=== PATIENT | male | born 1955 | race Caucasian/White ===

== ENCOUNTER 2021-11-14 14:55 | Outpatient (REF) | payer MEDICARE, SELFPAY ==
--- NOTE | ~2021-11-14 | US_ITS ---
EXAMINATION: US VENOUS ULTRASOUND WITH DOPPLER LOWER EXTREMITY, RIGHT CLINICAL INFORMATION: This is a 66-year-old male with right leg pain. Possible deep vein thrombosis. COMPARISON: None TECHNIQUE: Ultrasound of the deep veins is performed from the hip to the calf with compression sonography and color and pulse Doppler assessment. Spectral analysis with color-flow imaging is performed. FINDINGS: There is normal venous compression and respiratory variation and augmented flow. The visualized common femoral vein, superficial femoral vein, profunda femoral vein, popliteal vein, and the trifurcation region shows no evidence of deep venous thrombosis. There is a 3.2 x 1.0 x 2.1 cm cyst in the popliteal fossa. This could represent a Mendze's cyst. If the patient's symptoms persist, followup ultrasound in 5 days 7 days might be of value to exclude proximal propagation from a non-visualized calf vein. US/US venous duplex LE RT IMPRESSION: 1. No DVT demonstrated in the right lower extremity. 2. There is a possible Mendez's cyst measuring 3.2 cm in the right popliteal fossa.
== END 2021-11-14 14:56 | disposition home or self-care (01) ==
LOC: HO.US 14:55
PROVIDERS: Absent Provider Student in an Organized Health Care Education/Training Program; PCP Student in an Organized Health Care Education/Training Program; Visit Provider Emergency Medicine
DX: R60.0 Localized edema (principal); M79.89 Other specified soft tissue disorders
CPT/HCPCS: 93971

== ENCOUNTER 2024-06-26 12:39 | Outpatient (REF) | payer MEDICARE, SELFPAY ==
[2024-06-26 14:33] LABS: Estimated Average Glucose 220 mg/dL; Hemoglobin A1C 278.5577 umol/L; Hemoglobin A1c % 9.3 % (<6.0); Total Hemoglobin (HGBA1C) 3580.7415 umol/L
[2024-06-26 14:55] LABS: Erythrocyte Sedimentation Rate 11 MM/HR (0-15)
[2024-06-26 17:05] LABS: Folate > 20.0 ng/mL (> or = 4.0); Vitamin B12 353 pg/mL (200-900)
[2024-06-27 12:38] LABS: Lyme Abs Screen <0.90 index
[2024-06-29 19:03] LABS: IgA 164 mg/dL (70-320); IgG 676 mg/dL (600-1540); IgM 67 mg/dL (50-300)
== END 2024-06-26 12:40 | disposition home or self-care (01) ==
LOC: HO.LAB 12:39
PROVIDERS: Absent Provider Student in an Organized Health Care Education/Training Program; PCP Student in an Organized Health Care Education/Training Program; Visit Provider Psychiatry & Neurology Neurology
DX: G62.9 Polyneuropathy, unspecified (principal); Z13.1 Encounter for screening for diabetes mellitus
CPT/HCPCS: 36415; 82607; 82746; 82784; 83036; 85652; 86334; 86617; 86618

== ENCOUNTER 2025-08-01 09:52 | Outpatient (REF) | payer MEDICARE, SELFPAY ==
--- OUTSIDE RECORDS SUMMARY | 2025-08-01 09:15 | XMS_ITS | Encounter Summary ---
Author Organization [employer] Address [address] [place] [address] 7 [place] [address] Care Team Providers Care Hr Payroll Coordinator Name Role Phone Rina Suarez PharmD Unavailable [phone] Alyx Valadez MD Primary Care Provider [phone] Reason for Referral * Consultation (Routine) - Pending Review Specialty Diagnoses / Procedures Referred By Francisco Javier gee Referred To Contact Gastroenterology Diagnoses Colon cancer screening Alyx Valadez MD [address] [place] [address] Phone: tel: fax: Referral ID Status Reason Start Date Expiration Date Visits Requested Visits Authorized [id number] Pending Review Specialty Services Required 08/01/2026 1 1 Reason for Visit * Reason Comments Establish Care Encounter Details Date Type Department Care Team ([facility] st Contact Info) Description 08/01/2025 9:15 AM EST Office Visit [facility] [address] [place] [address] Alyx Valadez MD [address] [place] [address] Type 2 diabetes mellitus without complication, without long-term current use of insulin (HCC) (Primary Dx); Mixed simple and mucopurulent chronic bronchitis (CMS/HCC) (HCC); COPD with asthma (CMS/HCC) (HCC); Other hyperlipidemia; Pulmonary embolism, other, unspecified chronicity, unspecified whether acute cor pulmonale present (CMS/HCC) (HCC); Benign prostatic hyperplasia with lower urinary tract symptoms, symptom details unspecified; Colon cancer screening; Abnormal gait due to peripheral sensory disorder; Impaired mobility and ADLs; Hypothyroidism, unspecified type Social History Tobacco Use Types Packs/Day Years Used Date Smoking Tobacco: Former Cigarettes Smokeless Tobacco: Never Depression Answer Date Recorded Patient Health Questionnaire-9 Score 0 08/01/2025 Patient Health Questionnaire-9 Score 0 08/01/2025 Last PHQ-9: Questionnaire Data Not on file 1 10/01/2024 Housing Stability Answer Date Recorded What is your housing situation today? I have jaspreet aviles 10/11/[address] you li ve. Do you have problems with any of the following? None of the above 10/11/2024 Food Insecurity Answer Date Recorded Within the past 12 months, y ou worried that your food would run out before you got money to buy more: Never True 10/11/2024 Within the past 12 months,th e food you bought just didn't last and you didn't have enough money to get more: Never True 01/2025 Transportation Answer Date Recorded In the past 12 months, has l ack of transportation kept you from medical appts, meetings, work or from getting things needed for daily living? No 10/11/2024 Utilities Answer Date Recorded In the past 12 months, has t he electric, gas, oil or water company threatened to shut off services in your home? Yes 07/23/2025 Depression Answer Date Recorded Patient Health Questionnaire-2 Score 0 08/01/2025 Internet Access Answer Date Recorded Internet Access Q1 Yes 07/23/2025 Internet Access Q2 I do not want or need it 07/07 Sex and Gender Information Value Date Recorded Sex Assigned at Male 07/06/2022 10:20 AM EDT Legal Sex Male 10:20 AM EDT Gender Identity Male 07/06/2022 10:20 AM EDT Sexual Orientation Straight 07/06/2022 10 :20 AM EDT documented as of this encounter Last Filed Vital Signs Vital Sign Reading Time Taken Comments Blood Pressure 118/66 08/01/2025 9:01 AM EST Pulse 78 08/01/2025 9:01 AM EST Temperature 36.3 C (97.4 F) 08/01/2025 9:01 AM EST Respiratory Rate 18 08/01/2025 9:01 AM EST Oxygen Saturation 97% 08/01/2025 9:01 AM EST Inhaled Oxygen Concentration - - Weight 93.5 kg (206 lb 3.2 oz) 08/01/2025 9:01 A M EST Height 162.6 cm (5' 4 ) 08/01/2025 9:01 AM EST Body Mass Index 35.39 08/01/2025 9:01 AM EST documented in this encounter Functional Status * Over the past 2 weeks, how often have you been bothered by any of the following problems? Question Answer Date of Assessment Author Patient Health Questionnaire-2 Score 0 07/08 9:02 AM EST Devon Fernandez MA * Little interest or pleasure in doing things Answer Date of Assessment Author Not at all 08/01/2025 9:02 AM Devon Mcknight MA * Feeling down, depressed, or hopeless Answer Date of Assessment Author Not at all 08/01/2025 9:02 AM Devon Mcknight MA * Trouble falling or staying asleep, or sleeping too much Answer Date of Assessment Author Not at all 08/01/2025 9:02 AM Devon Mcknight MA * Feeling tired or having little energy Answer Date of Assessment Author Not at all 08/01/2025 9:02 AM Devon Mcknight MA * Poor appetite or overeating Answer Date of Assessment Author Not at all 08/01/2025 9:02 AM Devon Mcknight MA * Feeling bad about yourself - or that you are a failure or have let yourself or your family down Answer Date of Assessment Author Not at all 08/01/2025 9:02 AM Devon Mcknight MA * Trouble concentrating on things, such as reading the newspaper or watching television Answer Date of Assessment Author Not at all 08/01/2025 9:02 AM Devon Mcknight MA * Moving or speaking so slowly that other people could have noticed? Or the opposite - being so fidgety or restless that you have been moving around a lot more than usual. Answer Date of Assessment Author Not at all 08/01/2025 9:02 AM Devon Mcknight MA * Thoughts that you would be better off or hurting yourself in some way Answer Date of Assessment Author Not at all 08/01/2025 9:02 AM Devon Mcknight MA * Patient Health Questionnaire-9 Score Answer Date of Assessment Author 0 08/01/2025 9:02 AM Devon Mcknight MA documented as of this encounter Progress Notes * Alyx Valadez MD - 08/01/2025 9:15 AM EST Subjective Patient ID: Naeem Lai is a 70 y.o. male who presents for Establish Care. Naeem Lai is a patient with a history of diabetes, bipolar disorder, hypertension, hypothyroidism, leg swelling, and lung nodule who presents for routine follow-up. He reports having eaten a banana and avocado for breakfast this morning. The patient has been using a walker for approximately 5 years after experiencing an episode where his legs gave out while walking from his apartment to [facility] and back. He initially used a cane but his condition worsened, requiring progression to a walker. He reports having diabetic neuropathy with drop foot on both sides. He does not walk at all currently and relies on the walker for mobility, with van transportation services providing assistance. He uses a wheelchair that requires someone to push him, with the grievance and appeals coordinator providing this assistance during transportation. The patient reports hand tremors and will be evaluated for possible Parkinson's disease. He has a history of heart attacks a couple of years ago and pulmonary embolism three to four years ago, for which he takes a blood thinner, though he has not been given specific guidance on duration of therapy.He has COPD and takes fenofibrate for cholesterol management. He uses gabapentin for neuropathy management. He reports urinary control issues that occurred while in the snf and hospital, but states he regained control after returning home. He has not yet seen a urologist but is scheduled to do so,despite being on finasteride and Flomax for prostate-related symptoms. The patient lives alone with personal care attendants from [facility] agency providing assistance for a couple of hours in the morning and 2 hours in the afternoon several days per week. He receives chcf services from [facility] for medication administration, blood sugar and blood pressure monitoring, and assistance with braces and shoes. He also receives physical therapy and occupational therapy services from [facility]. He currently has a bruise on his foot and was not wearing shoes during the visit for this reason. He reports being overdue for colonoscopy screening and cataract surgery, with plans to schedule thecataract procedure this year after being told a year ago he could have it done. He continues to seeDr. [facility] for psychiatry at [facility] and Dr. Hoang, a cancer specialist at [facility], for lung cancer management, noting he believes he caught the cancer early. The patient denies known allergies but reports seasonal allergies. He denies having Parkinson's disease at this time. Medical History - Pulmonary embolism 3-4 years ago - Myocardial infarction several years ago - Diabetic neuropathy with bilateral drop foot, ambulatory decline over 5 years - Diabetes mellitus - Bipolar disorder - Hypertension - Hypothyroidism - Chronic obstructive pulmonary disease (COPD) - Lower extremity edema - Lung nodule - Seasonal allergies - Urinary incontinence during previous snf and hospital stay Allergies - No known drug allergies - Seasonal allergies Social History - Living Situation: Lives alone - Support Services: Has personal care attendants from [facility] agency who assist for a couple of hours in the morning and 2 hours in the afternoon several days per week; receives chcf services from [facility] for medication administration, blood sugar monitoring, blood pressure checks, and assistance with braces and shoes; receives physical therapy and occupational therapy services from [facility] - Transportation: Uses medical van transportation services with class b driver assistance Review of Systems Genitourinary: Negative for current urinary incontinence. Neurological: Positive for hand tremors. Review of Systems Objective BP 118/66 Pulse 78 Temp 97.4 ??F (36.3 ??C) (Oral) Resp 18 Ht 5' 4 (1.626 m) Wt 206 lb 3.2 oz (93.5 kg) SpO2 97% BMI 35.39 kg/m?? Physical Exam Constitutional: General: He is not in acute distress. Appearance: He is obese. He is not ill-appearing. Comments: Malodorous HENT: Head: Normocephalic and atraumatic. Nose: No congestion. Pulmonary: Effort: Pulmonary effort is normal. No respiratory distress. Breath sounds: Normal breath sounds. Musculoskeletal: Cervical back: Normal range of motion. Comments: Currently sitting in a transportation wheelchair. Is able to get up to get weight check with difficulties. Neurological: General: No focal deficit present. Psychiatric: Mood and Affect: Mood normal. Assessment/Plan Problem List Items Addressed This Visit Hypothyroidism Relevant Orders TSH W/Reflex to FT4 Type 2 diabetes mellitus without complication, without long-term current use of insulin (HCC) - Primary Relevant Orders POCT Glucose (Completed) POCT Hgb A1c (Completed) Lipid Panel, Standard Comprehensive Metabolic Panel Hepatitis C Antibody with Reflex to HCV, RNA, Quantitative, Real-Time PCR Albumin, Random Urine W/Creatinine RESOLVED: Mixed simple and mucopurulent chronic bronchitis (CMS/HCC) (HCC) Other hyperlipidemia Pulmonary embolism (HCC) Benign prostatic hyperplasia with lower urinary tract symptoms Abnormal gait due to peripheral sensory disorder Impaired mobility and ADLs Other Visit Diagnoses COPD with asthma (CMS/HCC) (HCC) Colon cancer screening Relevant Orders Referral to Gastroenterology Naeem Lai is a patient with diabetes mellitus, bipolar disorder, hypertension, hypothyroidism, peripheral edema, lung nodule, COPD, history of myocardial infarction and pulmonary embolism, presenting for routine follow-up with concerns about wheelchair needs and overdue screening procedures. Diabetes mellitus Assessment: Patient has established diabetes with recent A1C of 6.3 indicating reasonable glycemic control, though current glucose of 186 mg/dL is elevated following breakfast consumption of banana and avocado. Patient has developed diabetic neuropathy with bilateral drop foot requiring use of walker for approximately 5 years after experiencing leg weakness that progressed from requiring cane to walker assistance. Plan: - Order laboratory studies - Labs to be completed today before patient transport pickup Mobility impairment Assessment: Patient is non-ambulatory, using walker for 5 years since experiencing sudden leg weakness [facility] apartment [facility] He has bilateral drop foot secondary to diabetic neuropathy. Currently uses wheelchair for transportation with van service assistance. Patient reports adeq uate function with current walker but uncertainty about wheelchair needs for insurance documentation. Plan: - Coordinate with [employer] bhavana Guzman to determine appropriate wheelchair type for insurance documentation Lung cancer Assessment: Patient has lung cancer managed by Dr. Hoang at [facility], believes it was caught early. Patient is overdue for follow-up appointment with oncology. Plan: - Patient to schedule overdue appointment with Dr. Hoang at [facility] Overdue screening procedures Assessment: Patient is overdue for colonoscopy for colon cancer screening and has not completed recent cholesterol testing. Patient also has cataracts that video tape duplicator indicated could be addressed this year. Plan: - Refer for colonoscopy at [facility] - Patient to schedule cataract surgery appointment in [place] Urological concerns Assessment: Patient is on finasteride and Flomax for prostate issues but has not yet seen urologist. History of urinary incontinence during snf and hospital stays that resolved upon returning home. First urology visit pending. Plan: - Clarify diagnosis and indication for urology referral Anticoagulation management Assessment: Patient is on blood thinner following myocardial infarctions and pulmonary embolism 3-4years ago. No clear guidance provided regarding duration of therapy or discontinuation timeline. Plan: - Clarify anticoagulation duration and monitoring plan Tremor Assessment: Patient reports hand tremor and will be evaluated for possible Parkinson's disease. Plan: - Patient to undergo evaluation for Parkinson's disease documented in this encounter Plan of Treatment Upcoming Encounters Date Type Department Care Team (Late st Contact Info) Description 10/01/2025 1:00 PM EST Telemedicine [facility] [address] [place] [address] Rina Suarez, PharmD [address], [place] [id number] Scheduled Orders Name Type Priority Associated Diagnoses Orde r Schedule TSH W/Reflex to FT4 Lab Routine Hypothyroidism, unspecified type Expected: 08/01/2025 (Approximate), Expires: 08/01/2026 Lipid Panel, Standard Lab Routine Type 2 diabetes mellitus without complication, without long-term current use of insulin (HCC) Expected: 08/01/2025 (Approximate), Expires: 08/01/2026 Comprehensive Metabolic Panel Lab Routine Type 2 diabetes mellitus without complication, without long-term current use of insulin (HCC) Expected: 08/01/2025 (Approximate), Expires: 08/01/2026 Hepatitis C Antibody with Reflex to HCV, RNA, Quantitative, Real-Time PCR Lab Routine Type 2 diabetes mellitus without complication, without long-term current use of insulin (HCC) Expected: 08/01/2025, Expires: 08/01/2026 Albumin, Random Urine W/Creatinine Lab Routine Type 2 diabetes mellitus without complication, without long-term current use of insulin (HCC) Expected: 08/01/2025 (Approximate), Expires: 08/01/2026 Scheduled Referrals Name Type Priority Associated Diagnoses Order Schedule Referral to Gastroenterology Outpatient Referral Routine Colon cancer screening Expected: 08/01/2025 (Approximate), Expires: 08/01/2026 documented as of this encounter Goals Goal Patient Goal Type Associated Problems Recent Progress Patient-Stated? Author Help patients manage their type 2 diabetes Care Plan Help patients manage their type 2 diabetes No Tiarra Keen Weekly blood pressure task Care Plan Weekly blood pressure task No Tiarra Keen Help patients manage their type 2 diabetes Care Plan Help patients manage their type 2 diabetes No Tiarra Keen Patient has chronic kidney disease Care Plan Patient has chronic kidney disease No Tiarra Keen Weekly blood pressure task Care Plan Weekly blood pressure task No Tiarra Keen Patient has chronic kidney disease Care Plan Patient has chronic kidney disease No Tiarra Keen Weekly blood pressure task Care Plan Weekly blood pressure task No Devon Fernandez MA Weekly blood pressure task Care Plan Weekly blood pressure task No Devon Fernandez MA Patient has chronic kidney disease Care Plan Patient has chronic kidney disease No Devon Fernandez MA Patient has chronic kidney disease Care Plan Patient has chronic kidney disease No Devon Fernandez MA Weekly blood pressure task Care Plan Weekly blood pressure task No Devon Fernandez MA Weekly blood pressure task Care Plan Weekly blood pressure task No Devon Fernandez MA Patient has chronic kidney disease Care Plan Patient has chronic kidney disease No Devon Fernandez MA Patient has chronic kidney disease Care Plan Patient has chronic kidney disease No Devon Fernandez MA documented as of this encounter Procedures Procedure Name Priority Date/Time Associated Diagnosis Comments POCT GLUCOSE Routine 08/01/2025 9:12 AM EST Type 2 diabetes mellitus without complication, without long-term current use of insulin (HCC) POCT GLYCATED HEMOGLOBIN, TOTAL Routine 08/01/2025 9:11 AM EST Type 2 diabetes mellitus without complication, without long-term current use of insulin (HCC) documented in this encounter Results * POCT Glucose (08/01/2025 9:12 AM EST) Pathologist [facility] Glucose Blood, POC 186 60 - 200 mg/dL QC Media Lot # [id number] Lot# Expiration Date [id number] Blood Capillary blood specimen / Unknown 08/01/2025 9:12 AM EST us Alyx Valadez MD POINT OF CARE TEST ENTER/EDIT ORDERABLES Final Result * (ABNORMAL) POCT Hgb A1c (08/01/2025 9:11 AM EST) Hemoglobin A1C 6.3(A) 4.0 - 5.7 % QC Media Lot # [id number] Lot# Expiration Date Blood 08/01/2025 9:11 AM EST us Alyx Valadez MD POINT OF CARE TEST ENTER/EDIT ORDERABLES Final Result documented in this encounter Visit Diagnoses Diagnosis Type 2 diabetes mellitus without complication, without long-term current use of insulin (HCC)- Primary Mixed simple and mucopurulent chronic bronchitis (CMS/HCC) (HCC) Other chronic bronchitis COPD with asthma (CMS/HCC) (HCC) Other hyperlipidemia Pulmonary embolism, other, unspecified chronicity, unspecified whether acute cor pulmonale present (CMS/HCC) (HCC) Benign prostatic hyperplasia with lower urinary tract symptoms, symptom details unspecified Colon cancer screening Special screening for malignant neoplasms, colon Abnormal gait due to peripheral sensory disorder Impaired mobility and ADLs Hypothyroidism, unspecified type documented in this encounter Additional Health Concerns Active Problems Noted Date Diagnosed Date Help patients manage their type 2 diabetes 07/23 Weekly blood pressure task 07/23/2025 Help patients manage their type 2 diabetes 07/23 Patient has chronic kidney disease 07/23/2025 Weekly blood pressure task 07/23/2025 Patient has chronic kidney disease 07/23/2025 Weekly blood pressure task 07/31/2025 Weekly blood pressure task 07/31/2025 Patient has chronic kidney disease 07/31/2025 Patient has chronic kidney disease 07/31/2025 Weekly blood pressure task 08/01/2025 Weekly blood pressure task 08/01/2025 Patient has chronic kidney disease 08/01/2025 Patient has chronic kidney disease 08/01/2025 Assessment Noted Time PHQ-9 Depression Total Score: 0 08/01/20 9:02 AM EST documented as of this encounter Care Teams Hr Payroll Coordinator Relationship Specialty Start Date End Date Alyx Valadez MD [address] [place] [id number] PCP - General Family Medicine 07/20/25 Rina Suarez, ShirinD [address] [place] [address] Pharmacist Internal Medicine 10/27/24 [facility] 06/18/24 Pawan Valles MD [address] [place] [id number] Psychiatrist 08/01/25 [facility] 08/01/25 Megan Lr 08/01/25 documented as of this encounter
--- OUTSIDE RECORDS SUMMARY | 2025-08-01 11:24 | XMS_ITS | Encounter Summary ---
Author Organization [email or web address] Address [address] [place] [address] Care Team Providers Care Time Study Statistician Name Role Phone Sarah Holt MD Primary Care Provider [phone] Rina Suarez PharmD Unavailable [phone] James Dutton CNP Primary Care Provider [phone] Alyx Valadez MD Primary Care Provider [phone] Reason for Visit * Reason Onset Date Comments Nurse Triage 07/02/2023 Encounter Details Date Type Department Care Team (Late st Contact Info) Description 07/02/2023 Telephone [facility] [address] [place] [address] Sarah Holt MD [address] [place], [place] [id number] Nurse Triage Social History Tobacco Use Types Packs/Day Years Used Date Smoking Tobacco: Never Smokeless Tobacco: Never Housing Stability Answer Date Recorded What is your housing situation today? I have jaspreet aviles 07/02/[address] you li ve. Do you have problems with any of the following? None of the above 07/02/2023 Food Insecurity Answer Date Recorded Within the past 12 months, y ou worried that your food would run out before you got money to buy more: Never True 07/02/2023 Within the past 12 months,th e food you bought just didn't last and you didn't have enough money to get more: Never True Transportation Answer Date Recorded In the past 12 months, has l ack of transportation kept you from medical appts, meetings, work or from getting things needed for daily living? No 07/02/2023 Utilities Answer Date Recorded In the past 12 months, has t he electric, gas, oil or water company threatened to shut off services in your home? No 07/02/2023 Depression Answer Date Recorded Patient Health Questionnaire-2 Score 0 07/02/2023 Sex and Gender Information Value Date Recorded Sex Assigned at Male 07/06/2022 10:20 AM EDT Legal Sex Male 10:20 AM EDT Gender Identity Male 07/06/2022 10:20 AM EDT Sexual Orientation Straight 07/06/2022 10 :20 AM EDT documented as of this encounter Functional Status * Over the past 2 weeks, how often have you been bothered by any of the following problems? Question Answer Date of Assessment Author Little interest or pleasure in doing things Not at all 07/02/2023 10:28 AM EDT Jacqueline Trevino MA Feeling down, depressed, or hopeless Not at all 07/02/2023 10:28 AM EDT Jacqueline Trevino MA Patient Health Questionnaire -2 Score 0 07/02/2023 10:28 AM EDT Jacqueline Trevino MA documented as of this encounter Miscellaneous Notes * Telephone Encounter - Cassandra Vargas RN - 07/02/2023 2:18 PM EDT Called [facility], spoke to Kitty who states pt BP has not been in good control. Advised that had a long discussion with sister and pt regarding this and his most recent health history. Pt had TC appt todaywith a provider for interim medication management until his in person HDF appt on 07/06. Advised tocall back if further concerns and will task to team nurses to follow up with [facility] as needed. * Telephone Encounter - Tammy Hernandez - 07/02/2023 1:54 PM EDT Tc from Kitty with [facility] services requesting a call back in regards pt High Blood Pressure. Symptom: High Blood Pressure - Caller Reports Outcome: Schedule an urgent appointment (within 1 hour) or talk to a nurse or provider soon Reason: Getting worse The caller accepted this outcome Please contact kitty [phone] documented in this encounter Plan of Treatment Upcoming Encounters Date Type Department Care Team (Late st Contact Info) Description 10/01/2025 1:00 PM EST Telemedicine [facility] & PEDS [address] [place] [address] Rina Suarez, PharmD [address] [place] [address] documented as of this encounter Visit Diagnoses Not on filedocumented in this encounter Care Teams Time Study Statistician Relationship Specialty Start Date End Date Sarah Holt MD [address] [place] [address] PCP - General Family Medicine 09/12/13 07/03/25 James Dutton CNP [address] [place] [address] PCP - General Family Medicine 07/04/25 07/19/25 Alyx Valadez MD [address] [place] [address] PCP - General Family Medicine 07/20/25 Rina Suarez, PharmD [address] [place] [address] Pharmacist Internal Medicine 10/27/24 [facility] 06/18/24 Pawan Valles MD [address] [place] [address] Psychiatrist 08/01/25 [facility] 08/01/25 Megan Lr 08/01/25 documented as of this encounter
--- OUTSIDE RECORDS SUMMARY | 2025-08-01 11:24 | XMS_ITS | Data Portability ---
Author Organization [employer] [facility] [place] [facility] Address [address] [place] [address] Care Team Providers Care Tanbark Laborer Name Role Phone HIM CCA OTHER Assessment Encounter Date Assessment Date Assessment LastModified by Organization Details LastModified Time 07/05/2023 07/05/2023 68 yo M with hypertension calls for BP check after recently elevated BP while in the ED. No CP, SOB, visual changes, headache. Found to have SBP 170s. Otherwise, VS wnl and exam unremarkable. Pt instructed to f/up PCP. jesus Not available 07/16/2023 20:00:35 11/13/2024 11/13/2024 I have reviewed and agree with the assessment and plan as documented by the pharmacy manager. I provided real-time medical direction for this encounter and was immediately available to provide additional phone-based assistance as needed. History as noted in EMR and by pharmacy manager. I would add / emphasize: Pt seen for unintentional weight gain, elevated BP since coming off HCTZ for hypotension and intermittent e/o non exertional chest pressure. ECG w/ RBBB no acute changes and AVSS / well appearing no CP at present. Reviewed my recommendation for ED eval for R/O PR / ACS and patient would prefer close follow up with geophysical laboratory chief. TO call today for an appointment. reviewed that if CP recurrs and is assoc w/ new sxs or does not resolve spontaneously to present to ED via 911 and pt is in agreement. Seems atypical for cardiac CP but warrants close eval given hx of CAD. Pt aware we cannot JAVI at home. pallfather Not available 11/14/2024 14:20:17 Plan of Treatment Reminders Order Date Submit Date Provider Last Modified By Organization Details Last Modified Time Details Appointments None recorded. Lab None recorded. Referral None recorded. Procedures None recorded. Surgeries None recorded. Imaging electrocard iogram [address] [facility], [address] [place] [address], [phone] 05:01:41 Medication Orders None recorded. Patient TargetsNo targets recorded. Patient InstructionsNo instructions recorded. Reason for Referral None Reported. Results Created Date Observation Date Name Description Value Unit Range Abnormal Flag Note LastModifiedBy Organization Detail LastModifiedTime 11/15/1911/14/2024 abdelrahman salvadorgr am No observ ation record ed. [email or web address] [address], [address] 11/14/2024 14:29:56 Result Notes None recorded. Medical Equipment None Reported. Allergies No known drug allergies Medications Name Sig Start Date Stop Date Status Note LastModified by Organization Details LastModified Time multivitamin tablet TAKE ONE TABLET EVERY DAY active Not Available Not Available No t Available atorvastatin 20 mg tablet TAKE ONE TABLET EVERY DAY active Not Available Not Available No t Available nicotine 14 mg/24 hr daily transdermal patch APPLY 1 PATCH TOPICALLY TO THE SKIN DAILY IN THE MORNING DIRECTED DO NOT SMOKE WHILE USING PATCH active Not Available Not Available Not Available Vitamin C 500 mg tablet TAKE ONE TABLET DAILY active Not Available Not Available No t Available metoprolol succinate ER 50 mg tablet,exten ded release 24 hr TAKE ONE TABLET DAILY active Not Available Not Available No t Available sucralfate 1 gram tablet TAKE ONE TABLET TWICE DAILY BEFORE MEALS active Not Available Not Available No t Available melatonin 3 mg tablet TAKE TWO TABLETS AT BEDTIME active Not Available Not Available No t Available amlodipine 5 mg tablet TAKE ONE TABLET DAILY active Not Available Not Available No t Available Nicotrol 10 mg inhalation cartridge INHALE ONE PUFF EVERY THREE HOURS active Not Available Not Available Not Available vancomycin 125 mg capsule active Not Available Not Available Not Available famotidine 20 mg tablet TAKE ONE TABLET EVERY DAY active Not Available Not Available No t Available magnesium oxide 400 mg (241.3 mg magnesium) tablet TAKE ONE TABLET DAILY active Not Available Not Available No t Available trazodone 100 mg tablet TAKE TWO TABLETS AT BEDTIME active Not Available Not Available No t Available amlodipine 10 mg tablet TAKE ONE TABLET BY MOUTH DAILY active Not Available Not Available Not Available benzonatate 100 mg capsule TAKE TWO CAPSULES THREE TIMES DAILY NEEDED FOR COUGH active Not Available Not Available No t Available gemfibrozil 600 mg tablet TAKE ONE TABLET DAILY active Not Available Not Available No t Available levothyroxin e 50 mcg tablet TAKE ONE TABLET DAILY BEFORE BREAKFAST active Not Available Not Available No t Available pantoprazole 40 mg tablet,delay ed release TAKE ONE TABLET TWICE DAILY BEFORE MEALS active Not Available Not Available No t Available lisinopril 10 mg tablet TAKE ONE TABLET EVERY DAY active Not Available Not Available No t Available lidocaine 5 % topical patch APPLY 1 PATCH TO SKIN. LEAVE ON FOR 12 HOURS, THEN OFF FOR 12 HOURS DIRECTED. active Not Available Not Available No t Available metoprolol tartrate 50 mg tablet TAKE ONE TABLET DAILY active Not Available Not Available No t Available aspirin 81 mg chewable tablet CHEW ONE TABLET BY MOUTH EVERY DAY active Not Available Not Available No t Available folic acid 1 mg tablet TAKE ONE TABLET DAILY active Not Available Not Available No t Available hydrochlorot hiazide 25 mg tablet TAKE ONE TABLET BY MOUTH EVERY DAY active Not Available Not Available No t Available furosemide 20 mg tablet TAKE ONE TABLET EVERY MORNING active Not Available Not Available No t Available gabapentin 100 mg capsule TAKE ONE CAPSULE THREE TIMES DAILY active Not Available Not Available No t Available lisinopril 40 mg tablet TAKE ONE TABLET EVERY DAY active Not Available Not Available No t Available naproxen 500 mg tablet TAKE ONE TABLET BY MOUTH EVERY TWELVE HOURS active Not Available Not Available No t Available Stool Softener-Lax ative 8.6 mg-50 mg tablet TAKE ONE TABLET TWICE DAILY active Not Available Not Available Not Available cholestyrami ne (with sugar) 4 gram powder for susp in a packet MIX ONE PACKET DIRECTED AND DRINK DAILY NEEDED LOOSE stools active Not Available Not Available No t Available Invega Sustenna 156 mg/mL intramuscula r syringe INJECT 156 MG (ONE ML) INTRAMUSCUL LUIS EVERY FOUR WEEKS active Not Available Not Available N ot Available Eliquis 5 mg tablet TAKE ONE TABLET TWICE DAILY active Not Available Not Available Not Available Vitals Date Recorded Body weight Oxygen saturation Heart rate Body temperature Respiratory rate Body height Systolic And Diastolic Provider Name and Address Organization Details Last Updated DateTime 5 40652.4 g 94 % 71 /min 99.4 [degF] 14 /min 165.1 cm 121/78 mm[Hg] Not Available [facility] 5 11:46:54 Date Recorded Body temperature Respiratory rate Heart rate Oxygen saturation Systolic And Diastolic Provider Name and Address Organization Details Last Updated DateTime 3 98.2 [degF] 16 /min 85 /min 95 % 176/88 mm[Hg] Not Available [facility] 15:51:14 Social History None recorded. Functional Status None recorded. Mental Status None recorded. Family History Nothing Reported. Medical History No medical history recorded. Past Encounters Encounter ID Performer Location Encounter Start Date Encounter Closed Date Diagnosis/Indication Diagnosis SNOMED-CT Code Diagnosis ICD10 Code Diagnosis IMO Codes Diagnosis Note [id number] JULIAN ACOSTA MD Main - [address] [address] 07/05/2023 15:45:55 07/19/2023 13:06:13 Essential hypertension 86542288 I10 [id number] Juan Jose Flor MD [facility] - [address] [address] 11/13/2024 11:46:44 11/15/2024 16:01:00 Abnormal weight gain 685622454 R63.5 Health Concerns Section Related Observation LastModified by Organization Detai ls LastModified Time None Recorded Concern Status LastModified by Organization Details LastModified Time None Recorded Advance Directives Directive None Recorded Payers Insurance Date Sequence Insurance Name Policy Number Policy Erazo Covered Member ID Erazo Member ID Guarantor Name 11/28/2024 1 [facility] - DOS ON OR AFTER 2022 - DUAL ELIGIBLE - FDC OPTIONS AND ONE CARE (MEDICARE REPLACEMENT/ADV ANTAGE - HMO) Naeem Lai [id number] Naeem Lai Notes Date Note Type Note Provider Name and Address Organization Details Recorded Time 07/05/2023 text/html HPI: Member is a 68 year old male with significant chronic conditions including: Schizoaffective D/O, Bipolar Type, Anxiety, Hypercholesteremia, Hypothyroidism, HTN, COPD, Asthma, Smoker, Hearing Deficit, IBS, Pre-Diabetes, Arthritis, KALANI, Lumbar Radiculopathy, MDD, Hemorrhagic Shock, UGIB, Right atrial thrombus, submassive PE, and Cardiac Arrest Hx. Member s manual BP at visit was 184/88 and 184/84 on two manual readings several minutes apart. Member denies issues with Chest pain, headache, weakness in LUE. Member has taken all HTN medication today, including Metoprolol 50mg, Amlodipine 10mg, and Lisinopril 40mg. Remainder of member s VS and exam are benign. Member will need further examination and potential management of HTN. ..................... ..................... ..................... ..................... ..................... ..................... ............... CRC Nursing Assessment: Comments: Reviewed - Beth ARCINIEGA ..................... ..................... ..................... ..................... ..................... ..................... ............... Retention Manager Note From Ezra Benavides: Dispatched for the elderly male patient with hypertension. Encountered patient seated upright and conscious with family present. Family states patient is anxious and had been excessively checking his blood pressure, patient denies symptoms including: chest pain, changes in vision and shortness of breath when prompted; family denies any changes from patients baseline presentation. Patient expresses he has a ED follow-up visit appointment scheduled for 07/06/23 following discharge from SNF. Stroke assessment yields no pertinent findings. Skin warm, dry and of appropriate color for ethnicity. Head and neck free of trauma and edema. PERRL. -JVD. Breath sound present, clear and equal bilaterally. Abdomen soft, non-tender and non-distended. Extremities free of trauma and edema. Patient denies any complaints and would like to remain at home after having his blood pressure reading taken once again. Family states they are comfortable with patient remaining home but were reminded to reach out for help should patient become symptomatic. ..................... ..................... ..................... ..................... ..................... ..................... ............... Disposition: Fulfilled JULIAN ACOSTA MD [address] [facility], [place], [address], [employer] 07/16/2023 20:00:53 11/13/2024 text/html HPI: Patient reports concern of elevated BPs since HCTZ 25mg QD discontinued due to low BPs per Patient on visit of 10/11/24 with PCP. Has chest pressure and cough present for several weeks per patient non radiating. No fever. No shortness of breath. ..................... ..................... ..................... ..................... ..................... ..................... ............... CRC Nurse Triage Notes (Edd Snow): Chief Complaints: Chest Pain, Cough, High Blood Pressure PMH: Bipolar Disorder, Hypertension PMH Reviewed at 11/13/2024 - 09:21 Allergies Reviewed at 11/13/2024 09:21 Comments: HPI reviewed by this RN, no further information needed to process visit -Tanvir Snow RN Retention Manager Organization Information for Bhupinder Vaughn Dunwello Legal Name: [facility] Address: [address] [place] [address] [place] [address], Barker Operator: Johan Mead MD [facility] No.: [id number] Retention Manager POC Test Results from Bhupinder Vaughn - [facility] EKG (11:05:19) EKG test performed. Attachments uploaded as part of this test result can be found under Documents section. ..................... ..................... ..................... ..................... ..................... ..................... ............... Retention Manager Note From Bhupinder Vaughn: This 69-year-old male with a history including but not limited to bipolar disorder, HTN, PR, PE requested a visit today to address higher blood pressure readings since his HCTZ was discontinued approximately one month ago. Patient states his readings have been in the 130s to 150 systolic. Patient also reports several weeks of intermittent chest tightness. Patient states this happens almost every day, usually at rest and lasts for approximately 10 minutes before resolving on its own. Patient states this does not feel like previous MIs. Patient denies any associated pain radiation, diaphoresis, shortness of breath, headaches, nausea, vomiting, diarrhea. Patient presents awake and alert, in no acute distress and speaking full sentences. His vital signs are stable and he is afebrile. Nonfocal neurological exam. Lungs are clear throughout auscultation. Abdomen soft, nontender, nondistended. No lower extremity edema. EKG is uploaded, RBBB. We discussed the diagnostic uncertainty of home visits and the risk associated with this. The [facility] spoke directly to the patient and recommended either he present to the emergency department now or follow up with his geophysical laboratory chief today for an CHRIS appointment. Patient prefers to contact his cardiology office for appointment. The [facility] also provided education on blood pressure follow-up care as well as signs and symptoms that would indicate an urgent need for 911. The patient was given the opportunity to ask questions and is agreeable to this plan. ..................... ..................... ..................... ..................... ..................... ..................... ............... [facility] Consulted: Juan Jose Flor ..................... ..................... ..................... ..................... ..................... ..................... ............... Disposition: Fulfilled Juan Jose Flor MD [address] [facility],[address], [place], [address], [employer] 11/14/2024 14:20:31
--- OUTSIDE RECORDS SUMMARY | 2025-08-01 11:24 | XMS_ITS | Clinical Summary ---
Author Organization [address] Address [address] [place] [phone] Phone Care Team Providers Care Clothes Wringer Name Role Phone Erasmo Crowe MD Primary Care Provider [phone] Encounters Date Type Department Care Team Description 05/29/2025 Lab Requisition [facility] [address] [place] [phone] Erasmo Crowe MD Benign prostatic hyperplasia without lower urinary tract symptoms 05/23/2025 Lab Requisition [facility] [address] [place] [phone] Erasmo Crowe MD Anemia, unspecified; Acute kidney failure, unspecified (CMS/HCC V24); Gastrointestinal hemorrhage, unspecified 05/16/2025 Lab Requisition [facility] [address] [place] [phone] Erasmo Crowe MD Anemia, unspecified; Acute kidney failure, unspecified (CMS/HCC V24); Gastrointestinal hemorrhage, unspecified 05/09/2025 Lab Requisition [facility] [address] [place] [phone] Erasmo Crowe MD Anemia, unspecified; Acute kidney failure, unspecified (CMS/HCC V24); Gastrointestinal hemorrhage, unspecified; Chronic obstructive pulmonary disease, unspecified (CMS/HCC V24, CMS/HCC V28); Type 2 diabetes mellitus without complications (CMS/HCC V24, CMS/HCC V28) 05/03/2025 Lab Requisition [facility] [address] [place] [phone] Erasmo Crowe MD Type 2 diabetes mellitus without complications (CMS/HCC V24, CMS/HCC V28); Anemia, unspecified; Gastrointestinal hemorrhage, unspecified from Last 3 Months Social History Tobacco Use Types Packs/Day Years Used Date Smoking Tobacco: Never Assessed Sex and Gender Information Value Date Recorded Sex Assigned at Not on file Legal Sex Male 2:59 PM EST Gender Identity Not on file Sexual Orientation Not on file Plan of Treatment Health Maintenance Due Date Last Done Comments Colorectal Cancer Screening: Colonoscopy 1953 Diabetes: Annual Foot Exam 1963 Diabetes: Annual Retina Eye Exam 1963 RSV Immunization Adult Patients (1 - Risk 50-74 years 1-dose series) 2003 Depression Screening 09/06/2024 Abdominal Aortic Aneurysm (AAA) Screen 05/03/2025 Diabetes: Annual Urine Albumin-Creatinine Ratio (uACR) 05/03/2025 Falls Risk Assessment 05/03/2025 Hepatitis C Screening 05/03/2025 Social Influencers of Health Screening 05/03/2025 COVID-19 Vaccine ( season) 2025 06/09/2024 Influenza Vaccine (#1) 2025 , 07/06/2023, 06/03/2020, Additional history exists Diabetes: Blood Sugar Control Test (HGBA1C) 11/07/2025 05/10/2025, 05/03/2025, 02/26/2025, Additional history exists Diabetes: Annual GFR (Glomerular Filtration Rate) 05/24/2026 05/24/2025, 05/17/2025, 05/10/2025, Additional history exists Hypertension/CHF/CAD Annual BMP Blood Test 05/24/2026 05/24/2025, 05/17/2025, 05/10/2025, Additional history exists Cholesterol Screening (Lipid Panel) 02/13/2030 02/13/2025 DTaP,Tdap,and Td Vaccines (3 - Td or Tdap) 07/26/2033 07/26/2023, 07/23/2010 Zoster Vaccines Completed 09/01/2019, 06/07, 04/16/2017 Pneumococcal Vaccine: 50+ Years Completed 07/26/2023, 07/19/2018 HIB Vaccines Aged Out No longer eligi ble based on patient's age to complete this topic HPV Vaccines Aged Out No longer eligi ble based on patient's age to complete this topic Hepatitis A Vaccines Aged Out No long er eligible based on patient's age to complete this topic Hepatitis B Vaccines Aged Out No long er eligible based on patient's age to complete this topic IPV Vaccines Aged Out No longer eligi ble based on patient's age to complete this topic MMR Vaccines Aged Out No longer eligi ble based on patient's age to complete this topic Meningococcal ACWY Vaccine Aged Out N o longer eligible based on patient's age to complete this topic Meningococcal B Vaccine Aged Out No l onger eligible based on patient's age to complete this topic RSV Immunization Patients Under 20 months Aged Out No longer eligible based on patient's age to complete this topic Varicella Vaccines Aged Out No longer eligible based on patient's age to complete this topic Procedures Procedure Name Priority Date/Time Associated Diagnosis Comments PROSTATE SPECIFIC ANTIGEN DIAGNOSTIC Routine 05/29/2025 6:47 AM EDT Benign prostatic hyperplasia without lower urinary tract symptoms BASIC METABOLIC PANEL Routine 05/24/2025 4:44 AM EDT Anemia, unspecified Acute kidney failure, unspecified (CMS/HCC V24) Gastrointestinal hemorrhage, unspecified COMPLETE BLOOD COUNT Routine 05/24/2025 4:44 AM EDT Anemia, unspecified Acute kidney failure, unspecified (CMS/HCC V24) Gastrointestinal hemorrhage, unspecified BASIC METABOLIC PANEL Routine 05/17/2025 7:17 AM EDT Anemia, unspecified Acute kidney failure, unspecified (CMS/HCC V24) Gastrointestinal hemorrhage, unspecified COMPLETE BLOOD COUNT Routine 05/17/2025 7:17 AM EDT Anemia, unspecified Acute kidney failure, unspecified (CMS/HCC V24) Gastrointestinal hemorrhage, unspecified HEMOGLOBIN A1C Routine 05/10/2025 7:00 AM EDT Anemia, unspecified Acute kidney failure, unspecified (CMS/HCC V24) Gastrointestinal hemorrhage, unspecified Chronic obstructive pulmonary disease, unspecified (CMS/HCC V24, CMS/HCC V28) Type 2 diabetes mellitus without complications (CMS/HCC V24, CMS/HCC V28) BASIC METABOLIC PANEL Routine 05/10/2025 7:00 AM EDT Anemia, unspecified Acute kidney failure, unspecified (CMS/HCC V24) Gastrointestinal hemorrhage, unspecified Chronic obstructive pulmonary disease, unspecified (CMS/HCC V24, CMS/HCC V28) Type 2 diabetes mellitus without complications (CMS/HCC V24, CMS/HCC V28) COMPLETE BLOOD COUNT Routine 05/10/2025 7:00 AM EDT Anemia, unspecified Acute kidney failure, unspecified (CMS/HCC V24) Gastrointestinal hemorrhage, unspecified Chronic obstructive pulmonary disease, unspecified (CMS/HCC V24, CMS/HCC V28) Type 2 diabetes mellitus without complications (CMS/HCC V24, CMS/HCC V28) HEMOGLOBIN A1C Routine 05/03/2025 7:50 AM EDT Type 2 diabetes mellitus without complications (CMS/HCC V24, CMS/HCC V28) Anemia, unspecified Gastrointestinal hemorrhage, unspecified COMPREHENSIVE METABOLIC PANEL Routine 05/03/2025 7:50 AM EDT Type 2 diabetes mellitus without complications (CMS/HCC V24, CMS/HCC V28) Anemia, unspecified Gastrointestinal hemorrhage, unspecified COMPLETE BLOOD COUNT Routine 05/03/2025 7:50 AM EDT Type 2 diabetes mellitus without complications (CMS/HCC V24, CMS/HCC V28) Anemia, unspecified Gastrointestinal hemorrhage, unspecified from Last 3 Months Results * Prostate specific antigen diagnostic (05/29/2025 6:47 AM EDT) PSA 2.91 0.00 - 4.00 ng/mL LAB CHEMISTRY METHOD 05/29/2025 9:24 AM EDT [facility] ([facility] Blood Venous blood specimen / Unknown Venipuncture / Unknown 05/29/2025 6:47 AM EDT 05/29/2025 7:59 AM EDT Narrative [facility] - 05/29/2025 9:24 AM EDT The Siemens Advia Centaur Chemiluminescent Immunoassay is used. Results obtained with different assay methods or kits cannot be used interchangeably. Results cannot be interpreted as absolute evidence of the presence or absence of malignant disease. Erasmo Crowe MD LAB BLOOD ORDERABLES Final Result [facility] [address] [place] [address], * (ABNORMAL) Complete blood count (05/24/2025 4:44 AM EDT) Only the most recent of4 resultswithin the time period is included. WBC 6.4 4.8 - 10.8 K/mcL LAB HEMETOLOGY METHOD 05/24/2025 1:01 PM EDT [facility] RBC 4.40(L) 4.50 - 5.50 M/mcL LAB HEMETOLOGY METHOD 05/24/2025 1:01 PM EDT [facility] Hemoglobin 13.4(L) 13.5 - 17.5 g/dL LAB HEMETOLOGY METHOD 05/24/2025 1:01 PM EDT [facility] Hematocrit 42.6 42.0 - 54.0 % LAB HEMETOLOGY METHOD 05/24/2025 1:01 PM EDT [facility] MCV 97.5 79.0 - 98.0 FL LAB HEMETOLOGY METHOD 05/24/2025 1:01 PM EDT [facility] MCH 30.7 27.0 - 32.0 pcg LAB HEMETOLOGY METHOD 05/24[facility]25 [facility] MCHC 31.5(L) 32.0 - 37.0 g/dL LAB HEMETOLOGY METHOD 05/24/2025 1:01 [facility] RDW 13.8 11.0 - 15.0 % LAB HEMETOLOGY METHOD 05/24/2025 1:01 PM EDT [facility] Platelets 184 130 - 400 K/mcL LAB HEMETOLOGY METHOD 05/24/2025 1:01 PM EDT [facility] MPV 10.0 7.0 - 11.0 FL LAB HEMETOLOGY METHOD 05/24/2025 1:01 PM EDT [facility] NRBC 0.0 <1.0 % LAB HEMETOLOGY METHOD 05/24/2025 1:01 PM EDT [facility] NRBC Absolute 0.00 <0.10 K/mcL [facility] 05/24/2025 1:01 PM [facility] Blood Venous blood specimen / Unknown Venipuncture / Unknown 05/24/2025 4:44 AM EDT 05/24/2025 9:56 AM EDT us Erasmo Crowe MD LAB BLOOD ORDERABLES Final Result [facility] [address] [place] [address], * Basic metabolic panel (05/24/2025 4:44 AM EDT) Only the most recent of3 resultswithin the time period is included. Sodium 141 133 - 145 mmol/L LAB CHEMISTRY METHOD 05/24/2025 11:45 AM T [facility] Potassium 3.5 3.5 - 5.5 mmol/L LAB CHEMISTRY METHOD 05/24/2025 11:45 AM T [facility] Chloride 107 96 - 110 mmol/L LAB CHEMISTRY METHOD 05/24/2025 11:45 AM [facility] CO2 26 21 - 32 mmol/L LAB CHEMISTRY METHOD 05/24/2025 11:45 AM EDT [facility] Anion Gap 8 3 - 11 LAB CHEMISTRY METHOD 05/24/2025 11:45 AM T [facility] Glucose 93 70 - 100 mg/dL LAB CHEMISTRY METHOD 05/24/2025 11:45 AM [facility] BUN 15 5 - 25 mg/dL LAB CHEMISTRY METHOD 05/24/2025 11:45 AM [facility] Creatinine 1.07 0.70 - 1.30 mg/dL LAB CHEMISTRY METHOD 05/24/2025 11:45 AM EDT [facility] eGFR 74 >=60 mL/min/1. 73m2 LAB CHEMISTRY METHOD 05/24/2025 11:45 AM T [facility] Comment:Calculation based on the Chronic Kidney Disease Epidemiology Collaboration (CKD-EPI) equation refit without adjustment for race. BUN/Creatinine Ratio 14.0 LAB CHEMISTRY METHOD 05/24/2025 11:45 AM [facility] Calcium 8.5 8.5 - 10.5 mg/dL LAB CHEMISTRY METHOD 05/24/2025 11:45 AM [facility] Blood Venous blood specimen / Unknown Venipuncture / Unknown 05/24/2025 4:44 AM EDT 05/24/2025 9:56 AM EDT Erasmo Crowe MD LAB BLOOD ORDERABLES Final Result [facility] [address] [place] [address], * (ABNORMAL) Hemoglobin A1c (05/10/2025 7:00 AM EDT) Only the most recent of2 resultswithin the time period is included. Hemoglobin A1C 6.7(H) <6.5 % LAB CHEMISTRY METHOD 05/10/2025 1:41 PM EDT [facility] Mean Bld Glu Estim. 146 mg/dL LAB CHEMISTRY METHOD 05/10/2025 1:41 PM [facility] Blood Venous blood specimen / Unknown Venipuncture / Unknown 05/10/2025 7:00 AM EDT 05/10/2025 9:29 AM EDT Erasmo Crowe MD LAB BLOOD ORDERABLES Final Result [facility] [address] [place] [address], * (ABNORMAL) Comprehensive metabolic panel (05/03/2025 7:50 AM EDT) Sodium 142 133 - 145 mmol/L LAB CHEMISTRY METHOD 05/03/2025 1:25 PM [facility] Potassium 4.3 3.5 - 5.5 mmol/L LAB CHEMISTRY METHOD 05/03/2025 1:25 PM [facility] Chloride 112(H) 96 - 110 mmol/L LAB CHEMISTRY METHOD 05/03/2025 1:25 PM [facility] CO2 23 21 - 32 mmol/L LAB CHEMISTRY METHOD 05/03/2025 1:25 PM [facility] Anion Gap 7 3 - 11 LAB CHEMISTRY METHOD 05/03/2025 1:25 PM [facility] Glucose 130(H) 70 - 100 mg/dL LAB CHEMISTRY METHOD 05/03/2025 1:25 PM [facility] BUN 21 5 - 25 mg/dL LAB CHEMISTRY METHOD 05/03/2025 1:25 PM [facility] Creatinine 1.09 0.70 - 1.30 mg/dL LAB CHEMISTRY METHOD 05/03/2025 1:25 PM [facility] eGFR 73 >=60 mL/min/1. 73m2 LAB CHEMISTRY METHOD 05/03/2025 1:25 PM [facility] Comment:Calculation based on the Chronic Kidney Disease Epidemiology Collaboration (CKD-EPI) equation refit without adjustment for race. BUN/Creatinine Ratio 19.3 LAB CHEMISTRY METHOD 05/03/2025 1:25 PM T [facility] Calcium 8.7 8.5 - 10.5 mg/dL LAB CHEMISTRY METHOD 05/03/2025 1:25 PM [facility] AST (SGOT) 15 10 - 42 unit/L LAB CHEMISTRY METHOD 05/03/2025 1:25 PM T [facility] ALT (SGPT) 25 10 - 60 unit/L LAB CHEMISTRY METHOD 05/03/2025 1:25 PM [facility] Alkaline Phosphatase 66 42 - 121 unit/L LAB CHEMISTRY METHOD 05/03/2025 1:25 PM [facility] Total Protein 6.3 6.0 - 8.0 g/dL LAB CHEMISTRY METHOD 05/03/2025 1:25 PM EDT [facility] Albumin 3.6 3.2 - 5.0 g/dL LAB CHEMISTRY METHOD 05/03/2025 1:25 PM [facility] Total Bilirubin 0.6 0.0 - 1.4 mg/dL LAB CHEMISTRY METHOD 05/03/2025 1:25 PM [facility] Blood Venous blood specimen / Unknown Venipuncture / Unknown 05/03/2025 7:50 AM EDT 05/03/2025 11:42 AM EDT Erasmo Crowe MD LAB BLOOD ORDERABLES Final Result [facility] [address] [place] [address], from Last 3 Months Insurance [place]ICAID - [place] [facility] Member Subscriber Plan / Payer (Ef fective 2018-Present) Name:Ming Jordana Relation to Subscriber:Self Name:Jordana Lai Payer ID:[id number] Group ID:[id number] Type:Not on file Address: [address] [place] [id number] Care Teams Clothes Wringer Relationship Specialty Start Date End Date Erasmo Crowe MD [address] [place] [address] PCP - General Internal Medicine 05/03/25
--- OUTSIDE RECORDS SUMMARY | 2025-08-01 11:24 | XMS_ITS | Encounter Summary ---
Author Organization [employer] Address [address] [facility] 7[address] [place] [address] Care Team Providers Care Galley Worker Name Role Phone Rina Suarez PharmD Unavailable [phone] Alyx Valadez MD Primary Care Provider [phone] Reason for Visit * Reason Comments Med Refill Encounter Details Date Type Department Care Team ([facility] st Contact Info) Description 07/21/2025 Refill [facility] MED & PEDS [address] [place] [address] Sarah Holt MD [address] [place] [address] Social History Tobacco Use Types Packs/Day Years Used Date Smoking Tobacco: Former Cigarettes Smokeless Tobacco: Never Depression Answer Date Recorded Patient Health Questionnaire-9 Score 0 02/26/2025 Patient Health Questionnaire-9 Score 0 02/26/2025 Last PHQ-9: Questionnaire Data Not on file 0 02/26/2025 Housing Stability Answer Date Recorded What is [...] Date Recorded Patient Health Questionnaire-2 Score 0 02/26/2025 Internet Access Answer Date Recorded Internet Access Q1 Yes 07/23/2025 Internet Access Q2 I do not want or need it 07/07 Sex and Gender Information Value Date Recorded Sex Assigned at Male 07/06/2022 10:20 AM EDT Legal Sex Male 10:20 AM EDT Gender Identity Male 07/06/2022 10:20 AM EDT Sexual Orientation Straight 07/06/2022 10 :20 AM EDT documented as of this encounter Plan of Treatment Upcoming Encounters Date Type Department Care Team (Late st Contact Info) Description 10/01/2025 1:00 PM EST Telemedicine [facility] MED [facility] PEDS [address] [place] [address] Rina Suarez, PharmD [address] [place] [address] documented as of this encounter Visit Diagnoses Not on filedocumented in this encounter Additional Health Concerns Assessment Noted Time PHQ-9 Depression Total Score: 0 02/27/20 9:00 AM EDT documented as of this encounter Care Teams Galley Worker Relationship Specialty Start Date End Date lAyx Valadez MD [address] [place] [address] PCP - General Family Medicine 07/20/25 Rina Suarez, PharmD [address] [place] [address] Pharmacist Internal Medicine 10/27/24 [facility] 06/18/24 Pawan Valles MD [address] [place] [address] Psychiatrist 08/01/25 [facility] 08/01/25 Megan Lr 08/01/25 documented as of this encounter
--- OUTSIDE RECORDS SUMMARY | 2025-08-01 11:24 | XMS_ITS | Encounter Summary ---
Author Organization [employer] Address [address] [address] [place] [address] Care Team Providers Care Jewel Diameter Gauger Name Role Phone Sarah Holt MD Primary Care Provider Rina Suarez PharmD Unavailable [phone] James Dutton CNP Primary Care Provider [phone] Alyx Valadez MD Primary Care Provider [phone] Reason for Visit * Reason Onset Date Comments FYI 05/03/2025 Encounter Details Date Type Department Care Team (Late st Contact Info) Description 05/03/2025 Telephone [facility] MEDICINE [address] [place] [address] Sarah Holt MD [address] [place], [place] [phone] Social History Tobacco Use Types Packs/Day Years Used Date Smoking Tobacco: Former Cigarettes Smokeless Tobacco: Never Depression Answer Date Recorded Patient Health Questionnaire-9 Score 0 02/26/2025 Patient Health Questionnaire-9 Score 0 02/26/2025 Last PHQ-9: Questionnaire Data Not on file 0 02/26/2025 Housing Stability Answer Date Recorded What is your housing situation today? I have jaspreet sing 10/11/[address] you li [...] shut off services in your home? No 10/11/2024 Depression Answer Date Recorded Patient Health Questionnaire-2 Score 0 02/26/2025 Internet Access Answer Date Recorded Internet Access Q1 No 10/11/2024 Internet Access Q2 I do not want or need it 01/2025 Sex and Gender Information Value Date Recorded Sex Assigned at Male 07/06/2022 10:20 AM EDT Legal Sex Male 10:20 AM EDT Gender Identity Male 07/06/2022 10:20 AM EDT Sexual Orientation Straight 07/06/2022 10 :20 AM EDT documented as of this encounter Miscellaneous Notes * Telephone Encounter - Shanta Cox RN - 05/03/2025 1:21 PM EDT Noted. * Telephone Encounter - Kanu Aguilar - 05/03/2025 1:01 PM EDT TC from Bhavna with [facility] wanted to inform pcp office that pt is currently at [facility] . Pt was found laying on the ground on 04/30 @ 7:30AM by his Caregiver. Per pt his legs were week andhe fell and was on the ground since 6:30AM . At 8pm Bhavna arrived to patients home where he was getting into an ambulance and being taken to [facility] . Any questions please call bhavna at [phone] documented in this encounter Plan of Treatment Upcoming Encounters Date Type Department Care Team (Late st Contact Info) Description 10/01/2025 1:00 PM EST Telemedicine [facility] MED & PEDS [address] [place] [address] Rina Suarez, PharmD [address] [place] [address] documented as of this encounter Visit Diagnoses Not on filedocumented in this encounter Additional Health Concerns Assessment Noted Time PHQ-9 Depression Total Score: 0 02/27/20 9:00 AM EDT documented as of this encounter Care Teams Jewel Diameter Gauger Relationship Specialty Start Date End Date Sarah Holt MD [address] [place] [address] PCP - General Family Medicine 09/12/13 07/03/25 James Dutton CNP [address] [place] [address] PCP - General Family Medicine 07/04/25 07/19/25 Alyx Valadez MD [address] [place] [address] PCP - General Family Medicine 07/20/25 Rina Suarez PharmD [address] [place] [address] Pharmacist Internal Medicine 10/27/24 [facility] 06/18/24 Pawan Valles MD [address] [place] [address] Psychiatrist 08/01/25 [facility] 08/01/25 Megan Lr 08/01/25 documented as of this encounter
--- OUTSIDE RECORDS SUMMARY | 2025-08-01 11:24 | XMS_ITS | Encounter Summary ---
Author Organization [employer] Address [address] [facility] 7t [place] [address] Care Team Providers Care Nitrating Acid Mixer Name Role Phone Sarah Holt MD Primary Care Provider [phone] Rina Suarez PharmD Unavailable [phone] James Dutton CNP Primary Care Provider [phone] Alyx Valadez MD Primary Care Provider [phone] Encounter Details Date Type Department Care Team ([facility] st Contact Info) Description 07/03/2023 Orders Only [facility] MED [facility] PEDS [address] [place], [place] [phone] Td Malhotra MD [address] [place], [place] [phone] Social History Tobacco Use Types Packs/Day Years [...] Info) Description 10/01/2025 1:00 PM EST Telemedicine [facility] MED [facility] PEDS [address] [place] [address] Rina Suarez PharmD [address] [place] [address] documented as of this encounter Visit Diagnoses Not on filedocumented in this encounter Care Teams Nitrating Acid Mixer Relationship Specialty Start Date End Date Sarah Holt MD [address] [place] [address] PCP - General Family Medicine 09/12/13 07/03/25 James Dutton CNP [address] [place] [address] PCP - General Family Medicine 07/04/25 07/19/25 Alyx Valadez MD [address] [place] [address] PCP - General Family Medicine 07/20/25 Rina Suarez, PharmD [address] [place] [address] Pharmacist Internal Medicine 10/27/24 [facility] 06/18/24 Pawan Valles MD [address] [place] [address] Psychiatrist 08/01/25 [facility] 08/01/25 Megan Lr 08/01/25 documented as of this encounter
--- OUTSIDE RECORDS SUMMARY | 2025-08-01 11:24 | XMS_ITS | Encounter Summary ---
Author Organization [employer] Address [address] [facility] [address] [facility] [address] [place] [address] Care Team Providers Care General Engineer Name Role Phone Sarah Holt MD Primary Care Provider [phone] Rina Suarez PharmD Unavailable [phone] James Dutton CNP Primary Care Provider [phone] Alyx Valadez MD Primary Care Provider [phone] Reason for Visit * Reason Onset Date Comments FYI 07/23/2023 Encounter Details Date Type Department Care Team (Late st Contact Info) Description 07/23/2023 Telephone [facility] MEDICINE [address] [place] [address] Sarah Holt MD [address] [place], [place] [phone] Social History Tobacco Use Types Packs/Day Years [...] encounter Miscellaneous Notes * Telephone Encounter - Ca Murphy RN - 07/23/2023 8:54 AM EST Noted. Will send to PCP as FYI. * Telephone Encounter - Anson Gonzalez - 07/23/2023 8:36 AM EST TC from VN at [facility] calling to inform on 07/22 the patient rolled off the bed and to the floor and the patient was able to get off the floor and in a chair VN states patient did not obtain any injuriesnor the patient is in pain. documented in this encounter Plan of Treatment Upcoming Encounters Date Type Department Care Team (Late st Contact Info) Description 10/01/2025 1:00 PM EST Telemedicine [facility] MED & PEDS [address] [place] [address] Rina Suarez, PharmD [address] [place] [address] documented as of this encounter Visit Diagnoses Not on filedocumented in this encounter Care Teams General Engineer Relationship Specialty Start Date End Date Sarah Holt MD [address] [place] [address] PCP - General Family Medicine 09/12/13 07/03/25 James Dutton CNP [address] [place] [address] PCP - General Family Medicine 07/04/25 07/19/25 Alyx Valadez MD [address] [place] [address] PCP - General Family Medicine 07/20/25 Rina Suarez PharmD [address] [place] [address] Pharmacist Internal Medicine 10/27/24 [facility] 06/18/24 Pawan Valles MD [address] [place] [address] Psychiatrist 08/01/25 [facility] 08/01/25 Megan Lr 08/01/25 documented as of this encounter
--- OUTSIDE RECORDS SUMMARY | 2025-08-01 11:24 | XMS_ITS | Encounter Summary ---
Author Organization [employer] Address [address] [facility] [address] [facility] [address] [place] [address] Care Team Providers Care Shipfitter Apprentice Name Role Phone Rina Suarez PharmD Unavailable [phone] Alyx Valadez MD Primary Care Provider [phone] Reason for Visit * Reason Onset Date Comments chart prep 07/31/2025 Encounter Details Date Type Department Care Team ([facility] st Contact Info) Description 07/31/2025 Telephone [facility] MED & PEDS [address] [place] [address] Alyx Valadez MD [address] [place] [address] chart prep Social History Tobacco Use Types Packs/Day Years [...] encounter Miscellaneous Notes * Telephone Encounter - Devon Fernandez MA - 07/31/2025 1:10 PM EST Chart Prep Labs: not done Images: done Referrals: appointment pending Vaccines due: RSV Screenings: colonoscopy, eye exam, and foot exam Overdue care gaps: A1c, Glucose, and SBIRT documented in this encounter Plan of Treatment Upcoming Encounters Date Type Department Care Team (Late st Contact Info) Description 10/01/2025 1:00 PM EST Telemedicine [facility] MED & PEDS [address] [place] [address] Rina Suarez, PharmD [address] [place] [address] documented as of this encounter Goals Goal Patient Goal Type Associated Problems Recent Progress Patient-Stated? Author Help patients manage their type 2 diabetes Care Plan Help patients manage their type 2 diabetes Tiarra Jordan Weekly blood pressure task Care Plan Weekly blood pressure task No Tiarra Keen Help patients manage their type 2 diabetes Care Plan Help patients manage their type 2 diabetes Tiarra Jordan Patient has chronic kidney disease Care Plan Patient has chronic kidney disease Tiarra Jordan Weekly blood pressure task Care Plan Weekly blood pressure task No Tiarra Keen Patient has chronic kidney disease Care Plan Patient has chronic kidney disease Tiarra Jordan Weekly blood pressure task Care Plan Weekly [...] Fernandez MA documented as of this encounter Visit Diagnoses Not on filedocumented in this encounter Additional Health Concerns Active [...] 07/31/2025 Patient has chronic kidney disease 07/31/2025 Assessment Noted Time PHQ-9 Depression Total Score: 0 02/27/20 9:00 AM EDT documented as of this encounter Care Teams Shipfitter Apprentice Relationship Specialty Start Date End Date Alyx Valadez MD [address] [place] [address] PCP - General Family Medicine 07/20/25 Rina Suarez PharmD [address] [place] [address] Pharmacist Internal Medicine 10/27/24 [facility] 06/18/24 documented as of this encounter
--- OUTSIDE RECORDS SUMMARY | 2025-08-01 11:24 | XMS_ITS | Encounter Summary ---
Author Organization [employer] Address [address] [place] [address] Care Team Providers Care Coal Deliverer Name Role Phone Sarah Holt MD Primary Care Provider Rina Suarez PharmD Unavailable [phone] James Dutton CNP Primary Care Provider [phone] Alyx Valadez MD Primary Care Provider [phone] Reason for Visit * Reason Onset Date Comments Hospital Follow-up 06/13/2025 Encounter Details Date Type Department Care Team (Late st Contact Info) Description 06/13/2025 Telephone [facility] MEDICINE [address] [place] [address] Sarah Holt MD [address] [place], [place] [id number] Hospital Follow-up Social History Tobacco Use Types Packs/Day Years Used Date Smoking Tobacco: Former Cigarettes Smokeless Tobacco: Never Depression Answer Date Recorded Patient Health Questionnaire-9 Score 0 02/26/2025 Patient Health Questionnaire-9 Score 0 02/26/2025 Last PHQ-9: Questionnaire Data Not on file 0 02/26/2025 Housing Stability Answer Date Recorded What is your housing situation today? I have jaspreetsamina aviles 10/11/[address] you [...] encounter Miscellaneous Notes * Telephone Encounter - Mervat Coles - 06/13/2025 8:31 AM EDT Tc from pt requesting a HDF appt. Hospital: [facility] Date of admission: 05/07 Discharge date: 06/12 Diagnosed: Pt fall couple time, Kidney Injury and dehydrated *Send message to [facility] Care Coordinators documented in this encounter Plan of Treatment Upcoming Encounters Date Type Department Care Team (Late st Contact Info) Description 10/01/2025 1:00 PM EST Telemedicine [facility] MED & PEDS [address] [place] [address] Rina Suarez, PharmD [address] [place] [address] documented as of this encounter Visit Diagnoses Not on filedocumented in this encounter Additional Health Concerns Assessment Noted Time PHQ-9 Depression Total Score: 0 02/27/20 9:00 AM EDT documented as of this encounter Care Teams Coal Deliverer Relationship Specialty Start Date End Date Sarah Holt MD [address] [place] [address] PCP - General Family Medicine 09/12/13 07/03/25 James Dutton CNP [address] [place] [address] PCP - General Family Medicine 07/04/25 07/19/25 Alyx Valadez MD [address] [place] [address] PCP - General Family Medicine 07/20/25 Rina Suarez PharmD [address] [place] [address] Pharmacist Internal Medicine 10/27/24 [facility] 06/18/24 Pawan Valles MD [address] [place] [address] Psychiatrist 08/01/25 [facility] 08/01/25 Megan Lr 08/01/25 documented as of this encounter
--- OUTSIDE RECORDS SUMMARY | 2025-08-01 11:24 | XMS_ITS | Encounter Summary ---
Author Organization [employer] Address [address] [place] [address] Care Team Providers Care Research Executive Name Role Phone Sarah Holt MD Primary Care Provider [phone] Rina Suarez PharmD Unavailable [phone] James Dutton CNP Primary Care Provider [phone] Alyx Valadez MD Primary Care Provider [phone] Reason for Visit * Reason Onset Date Comments FYI 07/05/2023 Encounter Details Date Type Department Care Team (Late st Contact Info) Description 07/05/2023 Telephone [facility] MEDICINE [address] [place] [address] Sarah Holt MD [address] [place], [place] [id number] FY Social History Tobacco Use Types Packs/Day Years [...] encounter Miscellaneous Notes * Telephone Encounter - Rosy Milner RN - 07/05/2023 4:16 PM EDT TC to pt sisiter- Cassy- she explained that the pt has been in and out of the hospital and then 2 SNFs. His BP used to be good and well controlled and no longer is. She states today it was 154/78 whichwas pretty good but then later in the day it was 184/88, [facility] nurse was there and it was still high and then instED [id number]. Cassy wanted to PCP to be aware. She was advised a message to [facility] PCP would be sent. * Telephone Encounter - Tammy Hernandez - 07/05/2023 10:31 AM EDT Tc from sister calling to inform pt blood pressure 154/78 and also stated they are going to be a little late for appt tomorrow. documented in this encounter Plan of Treatment Upcoming Encounters Date Type Department Care Team (Late st Contact Info) Description 10/01/2025 1:00 PM EST Telemedicine [facility] MED & PEDS [address] [place] [address] Rina Suarez, PharmD [address] [place] [address] documented as of this encounter Visit Diagnoses Not on filedocumented in this encounter Care Teams Research Executive Relationship Specialty Start Date End Date Sarah Holt MD [address] [place] [address] PCP - General Family Medicine 09/12/13 07/03/25 James Dutton CNP [address] [place] [address] PCP - General Family Medicine 07/04/25 07/19/25 Alyx Valadez MD [address] [place] [address] PCP - General Family Medicine 07/20/25 Rina Suarez PharmD [address] [place] [address] Pharmacist Internal Medicine 10/27/24 [facility] 06/18/24 Pawan Valles MD [address] [place] [address] Psychiatrist 08/01/25 [facility] 08/01/25 Megan Lr 08/01/25 documented as of this encounter
--- OUTSIDE RECORDS SUMMARY | 2025-08-01 11:25 | XMS_ITS | Encounter Summary ---
Author Organization [facility] Address [address] [place] [address] Care Team Providers Care Asphalt Paver Operator Name Role Phone Erasmo Crowe MD Primary Care Provider [phone] Encounter Details Date Type Department Care Team (Late st Contact Info) Description 05/29/2025 Lab Requisition [facility] - Main Lab [address] [place] [address] Erasmo Crowe MD [address] [place], [place] [phone] Benign prostatic hyperplasia without lower urinary tract symptoms Social History Tobacco Use Types Packs/Day Years Used Date Smoking Tobacco: Never Assessed Sex and Gender Information Value Date Recorded Sex Assigned at Not on file Legal Sex Male 2:59 PM EST Gender Identity Not on file Sexual Orientation Not on file documented as of this encounter Plan of Treatment Not on file documented as of this encounter Procedures Procedure Name Priority Date/Time Associated Diagnosis Comments PROSTATE SPECIFIC ANTIGEN DIAGNOSTIC Routine 05/29/2025 6:47 AM EDT Benign prostatic hyperplasia without lower urinary tract symptoms documented in this encounter Results * Prostate specific antigen diagnostic (05/29/2025 6:47 AM EDT) PSA 2.91 0.00 - 4.00 ng/mL LAB CHEMISTRY METHOD 05/29/2025 9:24 AM EDT [facility] LAB Blood Venous blood specimen / Unknown Venipuncture / Unknown 05/29/2025 6:47 AM EDT 05/29/2025 7:59 AM EDT Narrative [facility] - 05/29/2025 9:24 AM EDT The Siemens Advia Centaur Chemiluminescent Immunoassay is used. Results obtained with different assay methods or kits cannot be used interchangeably. Results cannot be interpreted as absolute evidence of the presence or absence of malignant disease. Erasmo Crowe MD LAB BLOOD ORDERABLES Final Result [facility] [address] [place] [address], documented in this encounter Visit Diagnoses Diagnosis Benign prostatic hyperplasia without lower urinary tract symptoms documented in this encounter Care Teams Asphalt Paver Operator Relationship Specialty Start Date End Date Erasmo Crowe MD [address] [place] [address] PCP - General Internal Medicine 05/03/25 documented as of this encounter
--- OUTSIDE RECORDS SUMMARY | 2025-08-01 11:25 | XMS_ITS | Encounter Summary ---
Author Organization [employer] Address [address] [facility] [address] [place] [address] Care Team Providers Care Peach Grower Name Role Phone Rina Suarez PharmD Unavailable [phone] Alyx Valadez MD Primary Care Provider [phone] Encounter Details Date Type Department Care Team (Latest Contact Info) Description 08/01/2025 Travel Social History Tobacco Use Types Packs/Day Years [...] Health Questionnaire-2 Score 0 07/08 9:02 AM Devon Mcknight MA * Little interest or pleasure in [...] Mcknight MA documented as of this encounter Plan of Treatment Upcoming Encounters Date Type Department Care Team (Late st Contact Info) Description 10/01/2025 1:00 PM EST Telemedicine [facility] CHC MED & PEDS [address] [place] [address] Rina Suarez, PharmD [address] [place] [address] documented as of this encounter Goals Goal [...] documented as of this encounter Care Teams Peach Grower Relationship Specialty Start Date End Date Alyx Valadez MD [address] [place] [address] PCP - General Family Medicine 07/20/25 Rina Suarez PharmD [address] [place] [address] Pharmacist Internal Medicine 10/27/24 [facility] 06/18/24 Pawan Valles MD [address] [place] [address] Psychiatrist 08/01/25 [facility] 08/01/25 Megan Lr 08/01/25 documented as of this encounter
--- OUTSIDE RECORDS SUMMARY | 2025-08-01 11:25 | XMS_ITS | Encounter Summary ---
Author Organization [employer] Address [address] [facility] [address] [place] [address] Care Team Providers Care Attendant Arcade Name Role Phone Sarah Holt MD Primary Care Provider [phone] Rina Suarez PharmD Unavailable [phone] James Dutton CNP Primary Care Provider [phone] Alyx Valadez MD Primary Care Provider [phone] Reason for Visit * Reason Onset Date Comments Nurse Triage 12/06/2023 Encounter Details Date Type Department Care Team (Late st Contact Info) Description 12/06/2023 Telephone [facility] [address] [place] [address] Sarah Holt MD [address] [place], [place] [phone] Nurse Triage Social History Tobacco Use Types [...] encounter Miscellaneous Notes * Telephone Encounter - Jennifer Jung RN - 12/06/2023 2:45 PM EDT Triage call Pt reports has hx of cancer, has been taking radiation treatments. Today Pt sounds winded with speaking. Pt is aware of this and reports that is happening some today. Pt requests to speakto PCP only regarding all that has happened . Pt is offered [facility] open till 8pm today, tomorrowand wednesday. Pt is advised to call ambulance and go to ED for evaluation if breathing becomes worse since Pt reports no transportation. Pt is given tele visit with PCP 12/21/23 @ 1115am and Pt agrees with disposition. Pt agrees to go to closest ED if needed. Pt agrees with this disposition. Protocol Used: Breathing Difficulty (Adult) Protocol-Based Disposition: See in Office or Video Visit within 2 Weeks Video visit offer not recorded Positive Triage Question: * Mild longstanding difficulty breathing (e.g., speaks in phrases, SOB even at rest, pulse 100-120)and same as normal * All higher-acuity triage questions were negative Care Advice Discussed: * Reasons To Call Back - Severe difficulty breathing occurs - Fever more than 100.4 F (38.0 C) - You become worse * Telephone Encounter - Tammy Hernandez - 12/06/2023 2:18 PM EDT Symptoms: Asthma Attack - Caller Reports, Breathing Trouble Outcome: Schedule an urgent appointment (within 1 hour) or talk to a nurse or provider soon Reason: Caller denied all higher acuity questions The caller accepted this outcome documented in this encounter Plan of Treatment Upcoming Encounters Date Type Department Care Team (Late st Contact Info) Description 10/01/2025 1:00 PM EST Telemedicine [facility] MED & PEDS [address] [place] [address] Rina Suarez PharmD [address] [place] [address] documented as of this encounter Visit Diagnoses Not on filedocumented in this encounter Care Teams Attendant Arcade Relationship Specialty Start Date End Date Sarah Holt MD [address] [place] [address] PCP - General Family Medicine 09/12/13 07/03/25 James Dutton CNP [address] [place] [address] PCP - General Family Medicine 07/04/25 07/19/25 Alyx Valadez MD [address] [place] [address] PCP - General Family Medicine 07/20/25 Rina Suarez, PharmD [address] [place] [address] Pharmacist Internal Medicine 10/27/24 [facility] 06/18/24 Pawan Valles MD [address] [place] [address] Psychiatrist 08/01/25 [facility] 08/01/25 Megan Lr 08/01/25 documented as of this encounter
--- OUTSIDE RECORDS SUMMARY | 2025-08-01 11:25 | XMS_ITS | Encounter Summary ---
Author Organization [employer] Address [address] [facility] [address] [facility] [address] [place] [address] Care Team Providers Care Dispatcher Tow Truck Name Role Phone Sarah Holt MD Primary Care Provider [phone] Rina Suarez PharmD Unavailable [phone] James Dutton CNP Primary Care Provider [phone] Alyx Valadez MD Primary Care Provider [phone] Reason for Visit * Reason Onset Date Comments Referral 10/17/2024 Encounter Details Date Type Department Care Team (Late st Contact Info) Description 10/17/2024 Telephone [facility] MEDICINE [address] [place] [address] Sarah Holt MD [address] [place], [place] [phone] Referral Social History Tobacco Use Types Packs/Day Years Used Date Smoking Tobacco: Former Cigarettes Smokeless Tobacco: Never Housing Stability Answer Date [...] Recorded Patient Health Questionnaire-2 Score 0 07/02/2023 Internet Access Answer Date Recorded Internet Access [...] encounter Miscellaneous Notes * Telephone Encounter - Ankit Hart - 10/17/2024 12:37 PM EST Tc from pt requesting a referral for podiatry (foot) doctor that can cut his toe nails. Pt states that its an emergency situation. documented in this encounter Plan of Treatment Upcoming Encounters Date Type Department Care Team (Late st Contact Info) Description 10/01/2025 1:00 PM EST Telemedicine [facility] MED & PEDS [address] [place], [place] [phone] Rina Suarez PharmD [address] [place] [address] documented as of this encounter Visit Diagnoses Not on filedocumented in this encounter Care Teams Dispatcher Tow Truck Relationship Specialty Start Date End Date Sarah Holt MD [address] [place] [address] PCP - General Family Medicine 09/12/13 07/03/25 James Dutton CNP [address] [place] [address] PCP - General Family Medicine 07/04/25 07/19/25 Alyx Valadez MD [address] [place] [address] PCP - General Family Medicine 07/20/25 Rina Suarez PharmD [address] [place] [address] Pharmacist Internal Medicine 10/27/24 [facility] 06/18/24 Pawan Valles MD [address] [place] [address] Psychiatrist 08/01/25 [facility] 08/01/25 Megan Lr 08/01/25 documented as of this encounter
--- OUTSIDE RECORDS SUMMARY | 2025-08-01 11:25 | XMS_ITS | Encounter Summary ---
Author Organization [facility] Address [address] [place] [address] Care Team Providers Care Patternmaker Hand Name Role Phone Erasmo Crowe MD Primary Care Provider [phone] Encounter Details Date Type Department Care Team (Late st Contact Info) Description 05/23/2025 Lab Requisition [facility] - Main Lab [address] [place] [address] Erasmo Crowe MD [address] [place], [place] [phone] Anemia, unspecified; Acute kidney failure, unspecified (CMS/HCC V24); Gastrointestinal hemorrhage, unspecified Social History Tobacco Use Types Packs/Day Years [...] Procedure Name Priority Date/Time Associated Diagnosis Comments COMPLETE BLOOD COUNT Routine 05/24/2025 4:44 AM EDT Anemia, unspecified Acute kidney failure, unspecified (CMS/HCC V24) Gastrointestinal hemorrhage, unspecified BASIC METABOLIC PANEL Routine 05/24/2025 4:44 AM EDT Anemia, unspecified Acute kidney failure, unspecified (CMS/HCC V24) Gastrointestinal hemorrhage, unspecified documented in this encounter Results * Basic metabolic panel (05/24/2025 4:44 AM EDT) Sodium 141 133 - 145 mmol/L LAB CHEMISTRY METHOD 05/24/2025 11:45 AM [facility] Potassium 3.5 3.5 - 5.5 mmol/L LAB CHEMISTRY METHOD 05/24/2025 11:45 AM [facility] Chloride 107 96 - 110 mmol/L LAB CHEMISTRY METHOD 05/24/2025 11:45 AM [facility] CO2 26 21 - 32 mmol/L LAB CHEMISTRY METHOD 05/24/2025 11:45 AM [facility] Anion Gap 8 3 - 11 LAB CHEMISTRY METHOD 05/24/2025 11:45 AM [facility] Glucose 93 70 - 100 mg/dL LAB CHEMISTRY METHOD 05/24/2025 11:45 AM [facility] BUN 15 5 - 25 mg/dL LAB CHEMISTRY METHOD 05/24/2025 11:45 AM [facility] Creatinine 1.07 0.70 - 1.30 mg/dL LAB CHEMISTRY METHOD 05/24/2025 11:45 AM [facility] eGFR 74 >=60 mL/min/1. 73m2 LAB CHEMISTRY METHOD 05/24/2025 11:45 AM [facility] Comment:Calculation based on the Chronic Kidney Disease Epidemiology Collaboration (CKD-EPI) equation refit without adjustment for race. BUN/Creatinine Ratio 14.0 LAB CHEMISTRY METHOD 05/24/2025 11:45 AM [facility] Calcium 8.5 8.5 - 10.5 mg/dL LAB CHEMISTRY METHOD 05/24/2025 11:45 AM [facility] Blood Venous blood specimen / Unknown Venipuncture / Unknown 05/24/2025 4:44 AM EDT 05/24/2025 9:56 AM EDT us Erasmo Crowe MD LAB BLOOD ORDERABLES Final Result [facility] [address] [place] [address], * (ABNORMAL) Complete blood count (05/24/2025 4:44 AM EDT) [facility] WBC 6.4 4.8 - 10.8 K/mcL LAB HEMETOLOGY METHOD 05/24/2025 1:01 PM [facility] RBC 4.40(L) 4.50 - 5.50 M/mcL LAB HEMETOLOGY METHOD 05/24/2025 1:01 PM [facility] Hemoglobin 13.4(L) 13.5 - 17.5 g/dL LAB HEMETOLOGY METHOD 05/24/2025 1:01 PM [facility] Hematocrit 42.6 42.0 - 54.0 % LAB HEMETOLOGY METHOD 05/24/2025 1:01 PM [facility] MCV 97.5 79.0 - 98.0 FL LAB HEMETOLOGY METHOD 05/24/2025 1:01 PM [facility] MCH 30.7 27.0 - 32.0 pcg LAB HEMETOLOGY METHOD 05/24/2025 1:01 PM [facility] MCHC 31.5(L) 32.0 - 37.0 g/dL LAB HEMETOLOGY METHOD 05/24/2025 1:01 PM [facility] RDW 13.8 11.0 - 15.0 % LAB HEMETOLOGY METHOD 05/24/2025 1:01 PM [facility] Platelets 184 130 - 400 K/mcL LAB HEMETOLOGY METHOD 05/24/2025 1:01 PM [facility] MPV 10.0 7.0 - 11.0 FL LAB HEMETOLOGY METHOD 05/24/2025 1:01 PM [facility] NRBC 0.0 <1.0 % LAB HEMETOLOGY METHOD 05/24/2025 1:01 PM EDT [facility] NRBC Absolute 0.00 <0.10 K/mcL LAB HEMETOLOGY METHOD 05/24/2025 1:01 PM EDT [facility] Blood Venous blood specimen / Unknown Venipuncture / Unknown 05/24/2025 4:44 AM EDT 05/24/2025 9:56 AM EDT us Erasmo Crowe MD LAB BLOOD ORDERABLES Final Result [facility] [address] [place] [address], documented in this encounter Visit Diagnoses Diagnosis Anemia, unspecified Acute kidney failure, unspecified (CMS/HCC V24) Acute kidney failure, unspecified Gastrointestinal hemorrhage, unspecified documented in this encounter Care Teams Patternmaker Hand Relationship Specialty Start Date End Date Erasmo Crowe MD [address] [place] [address] PCP - General Internal Medicine 05/03/25 documented as of this encounter
--- OUTSIDE RECORDS SUMMARY | 2025-08-01 11:25 | XMS_ITS | Encounter Summary ---
Author Organization Address [address] [place] [address] Care Team Providers Care Jive Developer Name Role Phone Erasmo Crowe MD Primary Care Provider [phone] Encounter Details Date Type Department Care Team (Late st Contact Info) Description 05/03/2025 Lab Requisition [facility] - Main Lab [address] [facility] [place] [address] Erasmo Crowe MD [address] [place], [place] [id number] Type 2 diabetes mellitus without complications (CMS/HCC V24, CMS/HCC V28); Anemia, unspecified; Gastrointestinal hemorrhage, unspecified Social History Tobacco Use [...] Associated Diagnosis Comments COMPLETE BLOOD COUNT Routine 05/03/2025 7:50 AM EDT Type 2 diabetes mellitus without complications (CMS/HCC V24, CMS/HCC V28) Anemia, unspecified Gastrointestinal hemorrhage, unspecified HEMOGLOBIN A1C Routine 05/03/2025 7:50 AM EDT Type 2 diabetes mellitus without complications (CMS/HCC V24, CMS/HCC V28) Anemia, unspecified Gastrointestinal hemorrhage, unspecified COMPREHENSIVE METABOLIC PANEL Routine 05/03/2025 7:50 AM EDT Type 2 diabetes mellitus without complications (CMS/HCC V24, CMS/HCC V28) Anemia, unspecified Gastrointestinal hemorrhage, unspecified documented in this encounter Results * (ABNORMAL) Hemoglobin A1c (05/03/2025 7:50 AM EDT) Pathologist [facility] Hemoglobin A1C 6.8(H) <6.5 % LAB CHEMISTRY METHOD 05/03/2025 6:00 PM EDT [facility] Mean Bld Glu Estim. 148 mg/dL LAB CHEMISTRY METHOD 05/03/2025 6:00 PM EDT [facility] Blood Venous blood specimen / Unknown Venipuncture / Unknown 05/03/2025 7:50 AM EDT 05/03/2025 11:42 AM EDT Erasmo Crowe MD LAB BLOOD ORDERABLES Final Result [facility] [address] [place] [address], * (ABNORMAL) Comprehensive metabolic panel (05/03/2025 7:50 AM EDT) [facility] Sodium 142 133 - 145 mmol/L LAB CHEMISTRY METHOD 05/03/2025 1:25 PM [facility] Potassium 4.3 3.5 - 5.5 mmol/L LAB CHEMISTRY METHOD 05/03/2025 1:25 PM [facility] Chloride 112(H) 96 - 110 mmol/L LAB CHEMISTRY METHOD 05/03/2025 1:25 PM T [facility] CO2 23 21 - 32 mmol/L LAB CHEMISTRY METHOD 05/03/2025 1:25 PM T [facility] Anion Gap 7 3 - 11 LAB CHEMISTRY METHOD 05/03/2025 1:25 PM [facility] Glucose 130(H) 70 - 100 mg/dL LAB CHEMISTRY METHOD 05/03/2025 1:25 PM [facility] BUN 21 5 - 25 mg/dL LAB CHEMISTRY METHOD 05/03/2025 1:25 PM [facility] Creatinine 1.09 0.70 - 1.30 mg/dL LAB CHEMISTRY METHOD 05/03/2025 1:25 PM [facility] eGFR 73 >=60 mL/min/1. 73m2 LAB CHEMISTRY METHOD 05/03/2025 1:25 PM [facility] Comment:Calculation based on the Chronic Kidney Disease Epidemiology Collaboration (CKD-EPI) equation refit without adjustment for race. BUN/Creatinine Ratio 19.3 LAB CHEMISTRY METHOD 05/03/2025 1:25 PM [facility] Calcium 8.7 8.5 - 10.5 mg/dL LAB CHEMISTRY METHOD 05/03/2025 1:25 PM [facility] AST (SGOT) 15 10 - 42 unit/L LAB CHEMISTRY METHOD 05/03/2025 1:25 PM [facility] ALT (SGPT) 25 10 - 60 unit/L LAB CHEMISTRY METHOD 05/03/2025 1:25 PM [facility] Alkaline Phosphatase 66 42 - 121 unit/L LAB CHEMISTRY METHOD 05/03/2025 1:25 PM [facility] Total Protein 6.3 6.0 - 8.0 g/dL LAB CHEMISTRY METHOD 05/03/2025 1:25 PM [facility] Albumin 3.6 3.2 - 5.0 g/dL LAB CHEMISTRY METHOD 05/03/2025 1:25 PM [facility] Total Bilirubin 0.6 0.0 - 1.4 mg/dL LAB CHEMISTRY METHOD 05/03/2025 1:25 PM [facility] Blood Venous blood specimen / Unknown Venipuncture / Unknown 05/03/2025 7:50 AM EDT 05/03/2025 11:42 AM EDT Erasmo Crowe MD LAB BLOOD ORDERABLES Final Result [facility] [address] [place] [address], * Complete blood count (05/03/2025 7:50 AM EDT) WBC 6.7 4.8 - 10.8 K/mcL LAB HEMETOLOGY METHOD 05/03/2025 12:42 PM EDT [facility] RBC 4.50 4.50 - 5.50 M/mcL LAB HEMETOLOGY METHOD 05/03/2025 12:42 PM EDT [facility] Hemoglobin 14.0 13.5 - 17.5 g/dL LAB HEMETOLOGY METHOD [facility] Hematocrit 43.1 42.0 - 54.0 % LAB HEMETOLOGY METHOD 05/03/2025 12:42 PM EDT [facility] MCV 96.4 79.0 - 98.0 FL LAB HEMETOLOGY METHOD 05/03/2025 12:42 PM EDT [facility] MCH 31.3 27.0 - 32.0 pcg LAB HEMETOLOGY METHOD 05/03/2025 12:[facility] MCHC 32.5 32.0 - 37.0 g/dL LAB HEMETOLOGY METHOD 05/03/2025 12:42 PM EDT [facility] RDW 13.5 11.0 - 15.0 % LAB HEMETOLOGY METHOD 05/03/2025 12:42 PM EDT [facility] Platelets 211 130 - 400 K/mcL LAB HEMETOLOGY METHOD 05/03/2025 12:42 PM EDT [facility] MPV 9.9 7.0 - 11.0 FL LAB HEMETOLOGY METHOD 05/03/2025 12:42 PM EDT [facility] NRBC 0.0 <1.0 % LAB HEMETOLOGY METHOD 05/03/2025 12:42 PM EDT [facility] NRBC Absolute 0.00 <0.10 K/mcL LAB HEMETOLOGY METHOD 05/03/2025 12:42 PM EDT [facility] Blood Venous blood specimen / Unknown Venipuncture / Unknown 05/03/2025 7:50 AM EDT 05/03/2025 11:42 AM EDT us Erasmo Crowe MD LAB BLOOD ORDERABLES Final Result [facility] [address] [place] [address], documented in this encounter Visit Diagnoses Diagnosis Type 2 diabetes mellitus without complications (CMS/HCC V24, CMS/HCC V28) Anemia, unspecified Gastrointestinal hemorrhage, unspecified documented in this encounter Care Teams Jive Developer Relationship Specialty Start Date End Date Erasmo Crowe MD [address] [place] [address] PCP - General Internal Medicine 05/03/25 documented as of this encounter
--- OUTSIDE RECORDS SUMMARY | 2025-08-01 11:25 | XMS_ITS | Encounter Summary ---
Author Organization [facility] Address [address] [place] [address] Care Team Providers Care Debridging Machine Operator Name Role Phone Erasmo Crowe MD Primary Care Provider [phone] Encounter Details Date Type Department Care Team (Late st Contact Info) Description 05/16/2025 Lab Requisition [facility] - Main Lab 299 [facility] [place] [address] Erasmo Crowe MD [address] [place], [place] [phone] Anemia, unspecified; Acute kidney failure, unspecified (CMS/HCC [...] Associated Diagnosis Comments COMPLETE BLOOD COUNT Routine 05/17/2025 7:17 AM EDT Anemia, unspecified Acute kidney failure, unspecified (CMS/HCC V24) Gastrointestinal hemorrhage, unspecified BASIC METABOLIC PANEL Routine 05/17/2025 7:17 AM EDT Anemia, unspecified Acute kidney failure, unspecified (CMS/HCC V24) Gastrointestinal hemorrhage, unspecified documented in this encounter Results * (ABNORMAL) Basic metabolic panel (05/17/2025 7:17 AM EDT) Sodium 139 133 - 145 mmol/L LAB CHEMISTRY METHOD 05/17/2025 3:54 PM EDT [facility] Potassium 3.3(L) 3.5 - 5.5 mmol/L LAB CHEMISTRY METHOD 05/17/2025 3:54 PM [facility] Chloride 107 96 - 110 mmol/L LAB CHEMISTRY METHOD 05/17/2025 3:54 PM [facility] CO2 27 21 - 32 mmol/L LAB CHEMISTRY METHOD 05/17/2025 3:54 PM [facility] Anion Gap 5 3 - 11 LAB CHEMISTRY METHOD 05/17/2025 3:54 PM [facility] Glucose 110(H) 70 - 100 mg/dL LAB CHEMISTRY METHOD 05/17/2025 3:54 PM [facility] BUN 16 5 - 25 mg/dL LAB CHEMISTRY METHOD 05/17/2025 3:54 PM [facility] Creatinine 1.12 0.70 - 1.30 mg/dL LAB CHEMISTRY METHOD 05/17/2025 3:54 PM [facility] eGFR 70 >=60 mL/min/1. 73m2 LAB CHEMISTRY METHOD 05/17/2025 3:54 PM [facility] Comment:Calculation based on the Chronic Kidney Disease Epidemiology Collaboration (CKD-EPI) equation refit without adjustment for race. BUN/Creatinine Ratio 14.3 LAB CHEMISTRY METHOD 05/17/2025 3:54 PM [facility] Calcium 8.7 8.5 - 10.5 mg/dL LAB CHEMISTRY METHOD 05/17/2025 3:54 PM [facility] Blood Venous blood specimen / Unknown Venipuncture / Unknown 05/17/2025 7:17 AM EDT 05/17/2025 11:28 AM EDT us Erasmo Crowe MD LAB BLOOD ORDERABLES Final Result [facility] [address] [place] [address], * (ABNORMAL) Complete blood count (05/17/2025 7:17 AM EDT) [facility] WBC 6.1 4.8 - 10.8 K/mcL LAB [facility]EM[facility]OLOGY [facility]25 [facility] RBC 4.40(L) 4.50 - 5.50 M/mcL LAB HEMETOLOGY METHOD 05/17/2025 11:50 AM EDT [facility] Hemoglobin 13.7 13.5 - 17.5 g/dL LAB HEMETOLOGY METHOD 05/17/2025 11:50 AM [facility] Hematocrit 42.4 42.0 - 54.0 % LAB HEMETOLOGY METHOD 05/17/2025 11:50 AM [facility] MCV 96.1 79.0 - 98.0 FL LAB HEMETOLOGY METHOD 05/17/2025 11:50 [facility] MCH 31.1 27.0 - 32.0 pcg LAB HEMETOLOGY METHOD 05/17/2025 11:50 AM [facility] MCHC 32.3 32.0 - 37.0 g/dL LAB HEMETOLOGY METHOD 05/17/2025 11:50 AM [facility] RDW 13.6 11.0 - 15.0 % LAB HEMETOLOGY METHOD 05/17/2025 11:50 AM [facility] Platelets 171 130 - 400 K/mcL LAB HEMETOLOGY METHOD 05/17/2025 11:50 AM EDT [facility] MPV 10.2 7.0 - 11.0 FL LAB HEMETOLOGY METHOD 05/17/2025 11:50 AM [facility] NRBC 0.0 <1.0 % LAB HEMETOLOGY METHOD 05/17/2025 11:50 AM EDT [facility] NRBC Absolute 0.00 <0.10 K/mcL LAB HEMETOLOGY METHOD 05/17/2025 11:50 AM EDT [facility] Blood Venous blood specimen / Unknown Venipuncture / Unknown 05/17/2025 7:17 AM EDT 05/17/2025 11:28 AM EDT us Erasmo Crowe MD LAB BLOOD ORDERABLES Final Result [facility] [address] [place] [address], documented in this encounter Visit Diagnoses Diagnosis Anemia, unspecified Acute kidney failure, unspecified (CMS/HCC V24) Acute kidney failure, unspecified Gastrointestinal hemorrhage, unspecified documented in this encounter Care Teams Debridging Machine Operator Relationship Specialty Start Date End Date Erasmo Crowe MD [address] [place] [address] PCP - General Internal Medicine 05/03/25 documented as of this encounter
--- OUTSIDE RECORDS SUMMARY | 2025-08-01 11:25 | XMS_ITS | Encounter Summary ---
Author Organization [employer] Address [address] [place] [address] Care Team Providers Care Breastfeeding Program Coordinator Name Role Phone Sarah Holt MD Primary Care Provider [phone] Rina Suarez PharmD Unavailable [phone] James Dutton CNP Primary Care Provider [phone] Alyx Valadez MD Primary Care Provider [phone] Reason for Visit * Reason Onset Date Comments Referral 04/25/2024 Encounter Details Date Type Department Care Team (Late st Contact Info) Description 04/25/2024 Telephone [facility] MEDICINE [address] [place] [address] Sarah Holt MD [address] [place], [place] [phone] Referral Social History Tobacco Use Types Packs/Day [...] encounter Miscellaneous Notes * Telephone Encounter - Thelma Hernandez - 05/03/2024 1:22 PM EDT Referrals faxed to number provided. * Telephone Encounter - Anson Gonzalez - 04/25/2024 9:45 AM EDT TC samir Kitty a visiting nurse with [facility] requesting orders for Occupational therapy and Physical Therapy to be faxed to [phone] Jail Keeper did see it was faxed to [phone] however it needs to be faxed to [phone] documented in this encounter Plan of Treatment Upcoming Encounters Date Type Department Care Team (Late st Contact Info) Description 10/01/2025 1:00 PM EST Telemedicine [facility] MED & PEDS [address] [place] [address] Rina Suarez, PharmD [address] [place] [address] documented as of this encounter Visit Diagnoses Not on filedocumented in this encounter Care Teams Breastfeeding Program Coordinator Relationship Specialty Start Date End Date Sarah Holt MD [address] [place] [address] PCP - General Family Medicine 09/12/13 07/03/25 James Dutton CNP [address] [place] [address] PCP - General Family Medicine 07/04/25 07/19/25 Alyx Valadez MD [address] [place] [address] PCP - General Family Medicine 07/20/25 Rina Suarez PharmD [address] [place] [address] Pharmacist Internal Medicine 10/27/24 [facility] 06/18/24 Pawan Valles MD [address] [place] [address] Psychiatrist 08/01/25 [facility] 08/01/25 Megan L[facility] 08/01/25 documented as of this encounter
--- OUTSIDE RECORDS SUMMARY | 2025-08-01 11:25 | XMS_ITS | Encounter Summary ---
Author Organization [email or web address] Address [address] [facility] 7t [place] [address] Care Team Providers Care Song Writer Name Role Phone Sarah Holt MD Primary Care Provider [phone] Rina Suarez PharmD Unavailable [phone] James Dutton CNP Primary Care Provider [phone] Alyx Valadez MD Primary Care Provider [phone] Reason for Visit * Reason Comments Med Refill Encounter Details Date Type Department Care Team ([facility] st Contact Info) Description 01/02/2025 Refill [facility] MED & PEDS [address] [place] [address] Sarah Holt MD [address] [place] [address] Social History Tobacco Use Types Packs/Day Years [...] Description 10/01/2025 1:00 PM EST Telemedicine [facility] MED & PEDS [address] [place] [address] Rina Suarez PharmD [address] [place] [address] documented as of this encounter Visit Diagnoses Not on filedocumented in this encounter Care Teams Song Writer Relationship Specialty Start Date End Date Sarah Holt MD [address] [place] [address] PCP - General Family Medicine 09/12/13 07/03/25 James Dutton CNP [address] [place] [address] PCP - General Family Medicine 07/04/25 07/19/25 Alyx Valadez MD [address] [place] [address] PCP - General Family Medicine 07/20/25 Rina Suarez, ShirinD [address] [place] [address] Pharmacist Internal Medicine 10/27/24 [facility] 06/18/24 Pawan Valles MD [address] [place] [address] Psychiatrist 08/01/[address] [facility] 08/01/25 Megan Lr 08/01/25 documented as of this encounter
--- OUTSIDE RECORDS SUMMARY | 2025-08-01 11:25 | XMS_ITS | Encounter Summary ---
Author Organization [employer] Address [address] [facility] 7t [place] [address] Care Team Providers Care Garment Mender Name Role Phone Sarah Holt MD Primary Care Provider [phone] Rina Suarez PharmD Unavailable [phone] James Dutton CNP Primary Care Provider [phone] Alyx Valadez MD Primary Care Provider [phone] Encounter Details Date Type Department Care Team (Late Contact Info) Description 02/03/2023 Orders Only [facility] [place] MED & PEDS [address] [place] [address] Ilda Haywood LPN Social History Tobacco Use Types Packs/Day Years [...] Encounters Date Type Department Care Team (Late Contact Info) Description 10/01/2025 1:00 PM EST Telemedicine [facility] [place] MED & PEDS [address] [place] [address] Rina Suarez, PharmD [address] [place] [address] documented as of this encounter Visit Diagnoses Not on filedocumented in this encounter Care Teams Garment Mender Relationship Specialty Start Date End Date Sarah Holt MD [address] [place] [address] PCP - General Family Medicine 09/12/13 07/03/25 James Dutton CNP [address] [place] [address] PCP - General Family Medicine 07/04/25 07/19/25 Alyx Valadez MD [address] [place] [address] PCP - General Family Medicine 07/20/25 Rina Suarez PharmD [address] [place] [address] Pharmacist Internal Medicine 10/27/24 [facility] 06/18/24 Pawan Valles MD [address] [place] [address] Psychiatrist 08/01/25 [facility] 08/01/25 Megan Lr 08/01/25 documented as of this encounter
--- OUTSIDE RECORDS SUMMARY | 2025-08-01 11:25 | XMS_ITS | Encounter Summary ---
Author Organization [employer] Address [address] [facility] 7t [place] [address] Care Team Providers Care Workforce Development Vice President Name Role Phone Sarah Holt MD Primary Care Provider [phone] Rina Suarez PharmD Unavailable [phone] James Dutton CNP Primary Care Provider [phone] Alyx Valadez MD Primary Care Provider [phone] Encounter Details Date Type Department Care Team (Latest Contact Info) Description 11/02/2018 Abstract [facility] CONVERSIONS Dental, Provider, DDS Social History Tobacco Use Types Packs/Day Years [...] Info) Description 10/01/2025 1:00 PM EST Telemedicine [facility] MED & PEDS [address] [place] [address] Rina Suarez, PharmD [address] [place], [place] [phone] documented as of this encounter Visit Diagnoses Not on filedocumented in this encounter Care Teams Workforce Development Vice President Relationship Specialty Start Date End Date Sarah Holt MD [address] [place] [address] PCP - General Family Medicine 09/12/13 07/03/25 James Dutton CNP [address] [place] [address] PCP - General Family Medicine 07/04/25 07/19/25 Alyx Valadez MD [address] [place] [address] PCP - General Family Medicine 07/20/25 Rina Suarez PharmD [address] [place] [address] Pharmacist Internal Medicine 10/27/24 [facility] 06/18/24 Pawan Valles MD [address] [place] [address] Psychiatrist 08/01/25 [facility] 08/01/25 Megan Lr 08/01/25 documented as of this encounter
--- OUTSIDE RECORDS SUMMARY | 2025-08-01 11:25 | XMS_ITS | Encounter Summary ---
Author Organization [facility] Address [address] [place] [address] Care Team Providers Care Colored Leather Setter Name Role Phone Erasmo Crowe MD Primary Care Provider [phone] Encounter Details Date Type Department Care Team (Late st Contact Info) Description 05/09/2025 Lab Requisition [facility] - Main Lab [address] [facility] [place] [address] Erasmo Crowe MD [address] [place], [place] [phone] Anemia, unspecified; Acute kidney failure, unspecified (CMS/HCC V24); Gastrointestinal hemorrhage, unspecified; Chronic obstructive pulmonary disease, unspecified (CMS/HCC V24, CMS/HCC V28); Type 2 diabetes mellitus without complications (CMS/HCC V24, CMS/HCC V28) Social History Tobacco Use Types Packs/Day Years [...] Associated Diagnosis Comments COMPLETE BLOOD COUNT Routine 05/10/2025 7:00 AM EDT Anemia, unspecified Acute kidney failure, unspecified (CMS/HCC V24) Gastrointestinal hemorrhage, unspecified Chronic obstructive pulmonary disease, unspecified (CMS/HCC V24, CMS/HCC V28) Type 2 diabetes mellitus without complications (CMS/HCC V24, CMS/HCC V28) HEMOGLOBIN A1C Routine 05/10/2025 7:00 AM EDT Anemia, unspecified Acute kidney failure, unspecified (CMS/HCC V24) Gastrointestinal hemorrhage, unspecified Chronic obstructive pulmonary disease, unspecified ([facility] V24, [facility] V28) Type 2 diabetes mellitus without complications ([facility] V24, [facility] V28) BASIC METABOLIC PANEL Routine 05/10/2025 7:00 AM EDT Anemia, unspecified Acute kidney failure, unspecified ([facility] V24) Gastrointestinal hemorrhage, unspecified Chronic obstructive pulmonary disease, unspecified ([facility] V24, [facility] V28) Type 2 diabetes mellitus without complications ([facility] V24, [facility] V28) documented in this encounter Results * (ABNORMAL) Hemoglobin A1c (05/10/2025 7:00 AM EDT) Pathologist [facility] Hemoglobin A1C 6.7(H) <6.5 % LAB CHEMISTRY METHOD 05/10/2025 1:[address] [facility] Mean Bld Glu Estim. 146 mg/dL LAB CHEMISTRY METHOD 05/10/2025 1:[address] [facility] Blood Venous blood specimen / Unknown Venipuncture / Unknown 05/10/2025 7:00 AM EDT 05/10/2025 9:29 AM EDT us Erasmo Crowe MD LAB BLOOD ORDERABLES Final Result [facility] [address] [place] [address], * (ABNORMAL) Basic metabolic panel (05/10/2025 7:00 AM EDT) Pathologist [facility] Sodium 141 133 - 145 mmol/L LAB CHEMISTRY METHOD 05/10/2025 11:[address] [facility] Potassium 3.7 3.5 - 5.5 mmol/L LAB CHEMISTRY METHOD 05/10/2025 11:[address] [facility] Comment:Hemolysis present Chloride 108 96 - 110 mmol/L LAB CHEMISTRY METHOD 05/10/2025 11:52 AM [facility] CO2 26 21 - 32 mmol/L LAB CHEMISTRY METHOD 05/10/2025 11:52 AM [facility] Anion Gap 7 3 - 11 LAB CHEMISTRY METHOD 05/10/2025 11:52 AM [facility] Glucose 122(H) 70 - 100 mg/dL LAB CHEMISTRY METHOD 05/10/2025 11:52 AM [facility] BUN 14 5 - 25 mg/dL LAB CHEMISTRY METHOD 05/10/2025 11:52 AM [facility] Creatinine 1.04 0.70 - 1.30 mg/dL LAB CHEMISTRY METHOD 05/10/2025 11:52 AM [facility] eGFR 77 >=60 mL/min/1. 73m2 LAB CHEMISTRY METHOD 05/10/2025 11:52 AM [facility] Comment:Calculation based on the Chronic Kidney Disease Epidemiology Collaboration (CKD-EPI) equation refit without adjustment for race. BUN/Creatinine Ratio 13.5 LAB CHEMISTRY METHOD 05/10/2025 11:52 AM [facility] Calcium 8.8 8.5 - 10.5 mg/dL LAB CHEMISTRY METHOD 05/10/2025 11:52 AM [facility] Blood Venous blood specimen / Unknown Venipuncture / Unknown 05/10/2025 7:00 AM EDT 05/10/2025 9:30 AM EDT us Erasmo Crowe MD LAB BLOOD ORDERABLES Final Result [facility] [address] [place] [address], * (ABNORMAL) Complete blood count (05/10/2025 7:00 AM EDT) WBC 6.3 4.8 - 10.8 K/[facility] LAB HEMETOLOGY METHOD 05/10/2025 11:06 AM [facility] RBC 4.40(L) 4.50 - 5.50 M/mcL LAB HEMETOLOGY METHOD 05/10/2025 11:06 AM [facility] Hemoglobin 13.8 13.5 - 17.5 g/dL LAB HEMETOLOGY METHOD 05/10/2025 11:06 AM [facility] Hematocrit 42.3 42.0 - 54.0 % LAB HEMETOLOGY METHOD 05/10/2025 11:06 AM [facility] MCV 95.3 79.0 - 98.0 FL LAB HEMETOLOGY METHOD 05/10/2025 11:06 AM [facility] MCH 31.1 27.0 - 32.0 pcg LAB HEMETOLOGY METHOD 05/10/2025 11:06 AM [facility] MCHC 32.6 32.0 - 37.0 g/dL LAB HEMETOLOGY METHOD 05/10/2025 11:06 AM [facility] RDW 13.3 11.0 - 15.0 % LAB HEMETOLOGY METHOD 05/10/2025 11:06 AM [facility] Platelets 167 130 - 400 K/mcL LAB HEMETOLOGY METHOD 05/10/2025 11:06 AM [facility] MPV 10.3 7.0 - 11.0 FL LAB HEMETOLOGY METHOD 05/10/2025 11:06 AM [facility] NRBC 0.0 <1.0 % LAB HEMETOLOGY METHOD 05/10/2025 11:06 AM [facility] NRBC Absolute 0.00 <0.10 K/mcL LAB HEMETOLOGY METHOD 05/10/2025 11:06 AM [facility] Blood Venous blood specimen / Unknown Venipuncture / Unknown 05/10/2025 7:00 AM EDT 05/10/2025 9:29 AM EDT Erasmo Crowe MD LAB BLOOD ORDERABLES Final Result [facility] [address] [place] [address], documented in this encounter Visit Diagnoses Diagnosis Anemia, unspecified Acute kidney failure, unspecified (CMS/[facility] V24) Acute kidney failure, unspecified Gastrointestinal hemorrhage, unspecified Chronic obstructive pulmonary disease, unspecified (CMS/HCC V24, CMS/[facility] V28) Type 2 diabetes mellitus without complications (CMS/HCC V24, CMS/[facility] V28) documented in this encounter Care Teams Colored Leather Setter Relationship Specialty Start Date End Date Erasmo Crowe MD [address] [place] [address] PCP - General Internal Medicine 05/03/25 documented as of this encounter
--- OUTSIDE RECORDS SUMMARY | 2025-08-01 11:25 | XMS_ITS | Encounter Summary ---
Author Organization [employer] Address [address] [place] [address] Care Team Providers Care Cigarette Tester Name Role Phone Sarah Holt MD Primary Care Provider [phone] Rina Suarez PharmD Unavailable [phone] James Dutton CNP Primary Care Provider [phone] Alyx Valadez MD Primary Care Provider [phone] Reason for Visit * Reason Onset Date Comments Medication Question 10/26/2023 Encounter Details Date Type Department Care Team ([facility] st Contact Info) Description 10/26/2023 Telephone [facility] CHC MED & PEDS [address], [place] [phone] Sarah Holt MD [address] [place], [place] [id number] Medication Question Social History Tobacco Use Types Packs/Day Years [...] Telephone Encounter - Ca Murphy RN - 11/04/2023 2:13 PM EST TC X1 to Kitty regarding message below. LVM to return call to nurses. * Telephone Encounter - Ray Blanca - 11/03/2023 3:07 PM EST Tc from Kitty requesting a call from a nurse in regards to the CBC gummiest in regards to the administration of the gummies. Please contact kitty @ [phone] * Telephone Encounter - Jennifer Jung RN - 11/01/2023 12:27 PM EST Images from the original note were not included. Call to Pt regarding request from PCP regarding triage note below. Pt is contacted and due to cancer treatment schedule Pt doesn't want to go to an apt. Pt requests atele visit with provider. Pt PCP has no availability for next week or so. Pt is offered a tele visit with Dr. Grimes to discuss this information below and scheduled for tele visit 10/23/23 @ 830am. Pt is advised that registration call will be given earlier and Pt agrees to be by phone to receive that registration call. Triage call ILIANA Tang, called regarding Pt buying CBD gummies and taking 6 three days ago. Gummies have 25mg of CBD and 5mg THC in each gummie. Pt is also taking 1000mg of tylenol morning and evening. Pt is only prescribed 325mg/ 650mg. Pt is finished with PT and OT, maxed out Pt uses walker to ambulate at home and W/C for transport. Call to Pt, Pt reports has much pain in back and right knee which is of chronic nature. Pt reports that Pt only took one gummy today and yesterday, made a mistake and took too many the first day. Pt reports, I feel high but, I'm not slurring my words and thepain is much better with the CBD. Advised Pt will send this information to PCP and nursing team forfollow up. Pt agrees with this plan. Protocol Used: Medication Question Call (Adult) Protocol-Based Disposition: Callback or Video Visit by PCP Today MD Jennifer Lazo RN Caller: Unspecified (6 days ago, 2:14 PM) Needs appt to discuss the above * Telephone Encounter - Sarah Holt MD - 11/01/2023 11:33 AM EST Needs appt to discuss the above * Telephone Encounter - Jennifer Jung RN - 10/27/2023 2:51 PM EST Triage call ILIANA Tang, called regarding Pt buying CBD gummies and taking 6 three days ago. Gummies have 25mg of CBD and 5mg THC in each gummie. Pt is also taking 1000mg of tylenol morning and evening. Pt is only prescribed 325mg/ 650mg. Pt is finished with PT and OT, maxed out Pt uses walker to ambulate at home and W/C for transport. Call to Pt, Pt reports has much pain in back and right knee which is of chronic nature. Pt reports that Pt only took one gummy today and yesterday, made a mistake and took too many the first day. Pt reports, I feel high but, I'm not slurring my words and thepain is much better with the CBD. Advised Pt will send this information to PCP and nursing team forfollow up. Pt agrees with this plan. Protocol Used: Medication Question Call (Adult) Protocol-Based Disposition: Callback or Video Visit by PCP Today Video visit not offered Positive Triage Question: * Caller wants to use a complementary or alternative medicine * All higher-acuity triage questions were negative Care Advice Discussed: * Reasons To Call Back - You have any more questions - You become worse * Telephone Encounter - Dorota Keen - 10/26/2023 2:14 PM EST TC from [facility] requesting a call back . States pt sister reached out to her to let her know thatpt bought CBD gummy and took 6 of them yesterday . Informs pt sister is concern and would like to know if its okay for pt to take . Please call kitty to clarify at phone # [phone] . documented in this encounter Plan of Treatment Upcoming Encounters Date Type Department Care Team (Late st Contact Info) Description 10/01/2025 1:00 PM EST Telemedicine [facility] CHC MED & PEDS [address] [place] [address] Rina Suarez PharmD [address] [place] [address] documented as of this encounter Visit Diagnoses Not on filedocumented in this encounter Care Teams Cigarette Tester Relationship Specialty Start Date End Date Sarah Holt MD [address] [place] [address] PCP - General Family Medicine 09/12/13 07/03/25 James Dutton CNP [address] [place] [address] PCP - General Family Medicine 07/04/25 07/19/25 Alyx Valadez MD [address] [place] [address] PCP - General Family Medicine 07/20/25 Rina Suarez, ShirinD [address] [place] [address] Pharmacist Internal Medicine 10/27/24 [facility] 06/18/24 Pawan Valles MD [address] [place] [address] Psychiatrist 08/01/25 [facility] 08/01/25 Megan Lr 08/01/25 documented as of this encounter
--- OUTSIDE RECORDS SUMMARY | 2025-08-01 11:25 | XMS_ITS | Encounter Summary ---
Author Organization [employer] Address [address] [place] [address] Care Team Providers Care Financial Aid Officer Name Role Phone Sarah Holt MD Primary Care Provider [phone] Rina Suarez PharmD Unavailable [phone] James Dutton CNP Primary Care Provider [phone] Alyx Valadez MD Primary Care Provider [phone] Reason for Visit * Reason Comments Med Refill Encounter Details Date Type Department Care Team ([facility] st Contact Info) Description 11/02/2024 Refill [facility] [address] [place] [address] Sarah Holt MD [address] [place], [place] [phone] Social History Tobacco Use Types Packs/Day Years [...] Info) Description 10/01/2025 1:00 PM EST Telemedicine [facility] CHC MED & PEDS [address] [place] [address] Rina Suarez PharmD [address] [place] [address] documented as of this encounter Visit Diagnoses Not on filedocumented in this encounter Care Teams Financial Aid Officer Relationship Specialty Start Date End Date Sarah Holt MD [address] [place] [address] PCP - General Family Medicine 09/12/13 07/03/25 James Dutton CNP [address] [place] [address] PCP - General Family Medicine 07/04/25 07/19/25 Alyx Valadez MD [address] [place] [address] PCP - General Family Medicine 07/20/25 Rina Suarez, ShirinD [address] [place] [address] Pharmacist Internal Medicine 10/27/24 [facility] 06/18/24 Pawan Valles MD [address] [place] [address] Psychiatrist 08/01/25 [facility] 08/01/25 Megan Lr 08/01/25 documented as of this encounter
--- OUTSIDE RECORDS SUMMARY | 2025-08-01 11:25 | XMS_ITS | Encounter Summary ---
Author Organization [employer] Address [address] [place] [address] Care Team Providers Care Bin Worker Name Role Phone Sarah Holt MD Primary Care Provider [phone] Rina Suarez PharmD Unavailable [phone] James Dutton CNP Primary Care Provider [phone] Alyx Valadez MD Primary Care Provider [phone] Reason for Visit * Reason Onset Date Comments Appointment Request 2023 Encounter Details Date Type Department Care Team ([facility] st Contact Info) Description 2023 Telephone [facility] CHC MED & PEDS [address] [place] [address] Sarah Holt MD [address] [place] [address] Appointment Request Social History Tobacco Use Types Packs/Day Years Used Date Smoking Tobacco: Never Assessed Sex and Gender Information Value Date Recorded Sex Assigned at Male 07/06/2022 10:20 AM EDT Legal Sex Male 10:20 AM EDT Gender Identity Male 07/06/2022 10:20 AM EDT Sexual Orientation Straight 07/06/2022 10 :20 AM EDT documented as of this encounter Miscellaneous Notes * Telephone Encounter - Tammy Hernandez - 2023 10:31 AM EDT Rajeev Hernandez with [facility] calling to inform PCP pt is getting discharged of the facility on 06/28/2023, Mary is requesting a f/u appt. Please contact Mary [phone] Ext [phone] documented in this encounter Plan of Treatment Upcoming Encounters Date Type Department Care Team (Late st Contact Info) Description 10/01/2025 1:00 PM EST Telemedicine [facility] CHC MED & PEDS [address] [place] [address] Rina Suarez, PharmD [address] [place] [address] documented as of this encounter Visit Diagnoses Not on filedocumented in this encounter Care Teams Bin Worker Relationship Specialty Start Date End Date Sarah Holt MD [address] [place] [address] PCP - General Family Medicine 09/12/13 07/03/25 James Dutton CNP [address] [place] [address] PCP - General Family Medicine 07/04/25 07/19/25 Alyx Valadez MD [address] [place] [address] PCP - General Family Medicine 07/20/25 Rina Suarez, ShirinD [address] [place] [address] Pharmacist Internal Medicine 10/27/24 [facility] 06/18/24 Pawan Valles MD [address] [place] [address] Psychiatrist 08/01/25 [facility] 08/01/25 Megan Lr 08/01/25 documented as of this encounter
--- OUTSIDE RECORDS SUMMARY | 2025-08-01 11:25 | XMS_ITS | Encounter Summary ---
Author Organization [employer] Address [address] [facility] [address] [place] [address] Care Team Providers Care Intellectual Property Lawyer Name Role Phone Sarah Holt MD Primary Care Provider [phone] Rina Suarez PharmD Unavailable [phone] James Dutton CNP Primary Care Provider [phone] Alyx Valadez MD Primary Care Provider [phone] Reason for Visit * Reason Onset Date Comments Nurse Triage 01/10/2025 Encounter Details Date Type Department Care Team (Late st Contact Info) Description 01/10/2025 Telephone [facility] MEDICINE [address] [place] [address] Sarah Holt MD [address] [place], [place] [phone] Nurse Triage Social History Tobacco Use Types [...] Telephone Encounter - Shanta Cox RN - 01/11/2025 10:19 AM EDT TC to patient for status check. He states he is doing well. He states he does not usually feel likehe is losing his balance, or too weak to do the things I need to do. This teletypewriter installer asked if he was doing PT, and he stated, Yes, she is here right now. Instructed Naeem to call office if he feels like he is losing his balance more often, dizzy, weaker than normal. He stated understanding. * Telephone Encounter - Cassandra Vargas RN - 01/10/2025 2:59 PM EDT Called [facility], spoke to Kitty. States pt fell this morning, but denies any obvious injury. States pt has been getting low BP readings in the evenings: 116/58, 114/58, 114/62. Pt states got weak and lost balance, and fell. Kitty states pt denies blurred vision, LOC, numbness, increased sob, or other associated symptoms. Pt has been having some lower body weakness and is currentlydoing PT at home. Advised to call back if further concerns. Called pt to triage, unable to reach. Left message to call back. Will task to team nurse to do status check in 24-48 hours. * Telephone Encounter - Kanu Aguilar - 01/10/2025 1:55 PM EDT TC from [place] with [facility] reporting pt had a fall last night . Pt declines any injury / and has no visible bruising at this time . Kitty did indicate that he has been getting low b/p during the evening . 01/07 : 116/58 01/08 : 114/58 01/09 : 114/ Pt reports when b/p low he feels week and may be the cause of him falling last night . documented in this encounter Plan of Treatment Upcoming Encounters Date Type Department Care Team (Late st Contact Info) Description 10/01/2025 1:00 PM EST Telemedicine [facility] CHC MED & PEDS [address] [place] [address] Rina Suarez PharmD [address] [place] [address] documented as of this encounter Visit Diagnoses Not on filedocumented in this encounter Care Teams Intellectual Property Lawyer Relationship Specialty Start Date End Date Sarah Holt MD [address] [place] [address] PCP - General Family Medicine 09/12/13 07/03/25 James Dutton CNP [address] [place] [address] PCP - General Family Medicine 07/04/25 07/19/25 Alyx Valadez MD [address] [place] [address] PCP - General Family Medicine 07/20/25 Rina Suarez, PharmD [address] [place] [address] Pharmacist Internal Medicine 10/27/24 [facility] 06/18/24 Pawan Valles MD [address] [place] [address] Psychiatrist 08/01/25 [facility] 08/01/25 Megan Lr 08/01/25 documented as of this encounter
--- OUTSIDE RECORDS SUMMARY | 2025-08-01 11:25 | XMS_ITS | Encounter Summary ---
Author Organization [employer] Address [address] [facility] 7t [place] [address] Care Team Providers Care Systems Analyst Name Role Phone Sarah Holt MD Primary Care Provider [phone] Rina Suarez PharmD Unavailable [phone] James Dutton CNP Primary Care Provider [phone] Alyx Valadez MD Primary Care Provider Reason for Visit * Reason Onset Date Comments Med Refill 12/01/2024 Encounter Details Date Type Department Care Team ([facility] st Contact Info) Description 12/01/2024 Telephone [facility] CHC MED & PEDS [address] [place], [place] [phone] Sarah Holt MD [address] [place], [place] [phone] Med Refill Social History Tobacco Use Types Packs/Day Years [...] encounter Miscellaneous Notes * Telephone Encounter - Dorota Keen - 12/01/2024 11:16 AM EDT TC from pt requesting medication refill. Medications needing refill : traZODone (Desyrel) 100 MG tablet Aspirin Low Dose 81 MG EC tablet To be sent to: [facility] - [place], [place] - [address] [place] [address] documented in this encounter Plan of Treatment Upcoming Encounters Date Type Department Care Team ([facility] st Contact Info) Description 10/01/2025 1:00 PM EST Telemedicine [facility] CHC MED & PEDS [address] [place] [address] Rina Suarez, PharmD [address] [place] [address] documented as of this encounter Visit Diagnoses Not on filedocumented in this encounter Care Teams Systems Analyst Relationship Specialty Start Date End Date Sarah Holt MD [address] [place] [address] PCP - General Family Medicine 09/12/13 07/03/25 James Dutton CNP [address] [place] [address] PCP - General Family Medicine 07/04/25 07/19/25 Alyx Valadez MD [address] [place] [address] PCP - General Family Medicine 07/20/25 Rina Suarez PharmD [address] [place] [address] Pharmacist Internal Medicine 10/27/24 [facility] 06/18/24 Pawan Valles MD [address] [place] [address] Psychiatrist 08/01/25 [facility] 08/01/25 Megan L[facility] 08/01/25 documented as of this encounter
--- OUTSIDE RECORDS SUMMARY | 2025-08-01 11:25 | XMS_ITS | Data Portability ---
Author Organization [facility], Main Office Address [address], [address] [place] [address] Care Team Providers Care Assistant Community Director Name Role Phone [facility] OTHER Assessment Encounter Date Assessment Date Assessment LastModified by Organization Details LastModified Time 06/24/2023 06/24/202306/24: Over the past several days, i have irrigated bilateral ears d/t cerumen impaction. Plan to repeat on 06/25 [email or web address] Not available 06/24/2023 13:20:16 Plan of Treatment Reminders Order Date Submit Date Provider Last Modified By Organization Details Last Modified Time Details Appointments None record ed. Lab None record ed. Referral None record ed. Procedures None record ed. Surgeries None record ed. Imaging None record ed. Medication Orders None record ed. Patient TargetsNo targets recorded. Patient InstructionsNo instructions recorded. Reason for Referral None Reported. Problems Name Problem SNOMED Code Status Onset Date Resolution Date Notes Provider Name and Address Organization Details Recorded Time Pneumonia 423380694 Active 2022 STARLA RODRIGUEZ [address] [facility], [address], [place], [address], [facility] 3 12:56:07 Diarrhea 14626715 Active 2022 STARLA RODRIGUEZ [address] [facility], [address], [place], [address], [facility] 3 12:56:14 Essential hypertensio n 41773566 Active 2022 STARLA RODRIGUEZ [address] [facility], [address], [place], [address], [facility] 3 12:56:34 Bipolar disorder 40442438 Active 2022 STARLA RODRIGUEZ [address], [address], [place], [address], [facility] 3 12:56:45 Hypothyroid ism 41414740 Active 2022 STARLA RODRIGUEZ [address], [address], [place], [address], [facility] 3 12:57:04 Pulmonary embolism 18730132 Active 2022 STARLA RODRIGUEZ [address], [place], [address], [facility] 3 12:57:18 Cardiac arrest 194872834 Active 2022 STARLA RODRIGUEZ [address] [facility], [address], [place], [address], [facility] 3 12:57:51 Physical decondition ing 3003546456676 2 Active 2022 STARLA RODRIGUEZ [address] [facility], [address], [place], [address], [facility] 3 12:59:01 Peripheral venous insufficien cy 32945987 Active 2022 STARLA RODRIGUEZ [address] [facility], [address], [place], [address], [facility] 3 13:08:29 Type 2 diabetes mellitus 61817450 Active 2022 STARLA RODRIGUEZ [address] [facility], [address], [place], [address], [facility] 3 17:26:27 Hypomagnese bela 798006700 Active 2022 Kaylyn Lam MD [address] [facility], [address], [place], [address], [facility] 3 15:39:29 Hypokalemia 91339529 Active 2022 Kaylyn Lam MD [address] [facility], [address], [place], [address], [facility] 3 15:39:50 Clostridium difficile colitis 761246923 Active 2022 Kaylyn Lam MD [address] [facility], [address], [place], [address], [facility] 3 15:41:43 Hyperlipide bela 18013868 Active 2022 Kaylyn Lam MD [address] [facility], [address], [place], [address], [facility] 3 15:59:21 Gastroesoph ageal reflux disease 614267793 Active 2022 Kaylyn Lam MD [address] [facility], [address], [place], [address], [facility] 3 16:00:57 Neurogenic claudicatio n 905875250 Active 2022 Kaylyn Lam MD [address] [facility], [address], [place], [address], [facility] 3 16:03:10 History of cardiac arrest 390561415 Active 2022 Kaylyn Lam MD [address] [facility], [address], [place], [address], [facility] 3 16:04:44 Problem Notes None recorded. Medical Equipment None Reported. Allergies No known drug allergies Vitals Date Recorded Body height Heart rate Respiratory rate Provider Name and Address Organization Details Last Updated DateTime 06/28/2023 166.37 cm 78 /min 16 /min STARLA RODRIGUEZ [address] [facility], [address], [place], [address], [facility] 06/28/2023 12:10:17 Social History Question Answer Notes LastModified by Organizat ion Details LastModified Time Tobacco Smoking Status Former Smoker was a 1 ppd smoker prior to hospitalizati on, not currently smoking Kaylyn Lam MD [address] [facility], [address], [place], [address], [facility] 03/28/2023 16:14:34 Do You Have An Advance Directive? Yes Information not available 03/28/2023 What Is Your Code Status? Full Code Information not available 03/28/2023 Where Do You Live? Apartment Alone Information not available 03/28/2023 Legal Guardian? No Informati on not available 03/28/2023 Do You Have A Medical Power Of Supervisor [employer] [place]? Yes Not Invoked Information not available 03/28/2023 What Was The Date Of Your Most Recent Tobacco Screening? 03/25/2023 Information not available 03/28/2023 Do You Have An Out Of Hospital DNR? No Information not available 03/28/2023 What Is Your Relationship Status? Single Information not available 03/28/2023 How Much Tobacco Do You Smoke? No Information not available 03/28/2023 Has Tobacco Cessation Counseling Been Provided? Yes Encouraged To Stay Quit Information not available 03/28/2023 On What Date Was Tobacco Cessation Counseling Provided? 03/25/2023 Information not available 03/28/2023 How Many Years Have You Smoked Tobacco? 55 Information not available 03/28/2023 Sex: Unknown Functional Status Question Answer Note LastModified by Organizat ion Details LastModified Time Do you use any illicit or recreational drugs? No Information not available 03/28/2023 Do you or have you ever used any other forms of tobacco or nicotine? No Information not available 03/28/2023 What is your level of alcohol consumption? None Information not available 03/28/2023 Mental Status None recorded. Family History Nothing Reported Notes:Father of lung CA , both parents with HTN Medical History No medical history recorded. Immunizations Vaccine Type Date Status Note Provider Nam e and Address Organization Details Recorded Time COVID-19, mRNA, LNP-S, bivalent, PF, 30 mcg/0.3 mL dose 2 completed Alyx monroy [facility] 09/03/2023 12:28:39 SARS-COV-2 (COVID-19) vaccine, UNSPECIFIED 1 completed Alyx monroy [place] [facility] 12/15/2023 12:52:34 COVID-19, mRNA, LNP-S, bivalent, PF, 30 mcg/0.3 mL dose 1 [facility] 12/15/2023 12:52:45 COVID-19, mRNA, LNP-S, bivalent, PF, 30 mcg/0.3 mL dose 2 completed [facility] 12/15/2023 12:52:51 COVID-19, mRNA, LNP-S, bivalent, PF, 30 mcg/0.3 mL dose 2 completed Alyx Miranda null, [facility] 12/15/2023 12:52:55 COVID-19, mRNA, LNP-S, PF, 50 mcg/0.5 mL 3 completed [facility] 12/15/2023 12:53:06 zoster live 7 completed Alyx Miranda [facility] 12/15/2023 12:53:36 zoster recombinant 9 completed Alyx Miranda [facility] 12/15/2023 12:53:47 zoster recombinant 9 completed Alyx Miranda [facility] 12/15/2023 12:53:52 Influenza, adjuvanted, quadrivalent, PF 3 completed Alyx Miranda [facility] 12/15/2023 12:54:17 Pneumococcal conjugate PCV 13 8 completed Alyx Miranda [facility] 12/15/2023 12:54:37 Pneumococcal conjugate PCV20, polysaccharide CMG615 conjugate, adjuvant, PF 3 completed Alyx Miranda [facility] 12/15/2023 12:54:47 Tdap 0 completed [facility] 12/15/2023 12:55:04 Tdap 3 completed Alyx Miranda [facility] 12/15/2023 12:55:16 Past Encounters Encounter ID Performer Location Encounter Start Date Encounter Closed Date Diagnosis/Indication Diagnosis SNOMED-CT Code Diagnosis ICD10 Code Diagnosis IMO Codes Diagnosis Note [id number] STARLA RODRIGUEZ [facility] on [address] [place] [address] [place] [address] 03/24/2023 08:39:48 03/26/2023 11:41:36 Physical deconditioning 9295828156 9102 R68.89 Weakness/D econdition ingPT/OT eval and tx. Pneumonia 303079610 J18. 9 WBC 12CXR showed 2 hazy opacities which could potentiall y represent foci of pneumonia. treated with ceftriaxon e and azithromyc in- completed in hospitalmo nitor for clinical sx changes Diarrhea 62007008 R19.7 with hypokalemi a- replacedC- diffVancom ycin 125 mg every 6 hours for 9 DaysMagnes ium Oxide 400 mg dailymonit or fluid status intake/out putfollow up with GI. Essential hypertension 39516604 I10 lisinopril 10 mgMetoprol ol 50 mg dailymonit or VS/clinica l sx changes Bipolar disorder 2175636 4 F31.9 paliperido ne 156 mg Intramuscu lar monthly q 28 days.Trazo done 200 mg at hsmonitor for mood and behavioral changespsy ch prn Hypothyroidism 76958162 E03.9 Levothyrox ine 50 mcg dailymonit or labs/clini chauncey changes Pulmonary embolism 84585 003 I26.99 apixaban 5mg BIDmonitor clinical sx changesmon itor VS with pulse ox Gastroesop hageal reflux disease 555434655 K21.9 Hx of GI bleedFamot idine 20 mg BIDmonitor for GI upset.foll ow up with GI prn Peripheral venous insufficiency 12285404 I87.2 BLE edemamonit or for worsening edema Hyperlipidemia 47595676 E78.5 aspirin 81 mg EC dailyatorv astatin 20 mg oral QD Neurogenic claudication 757469312 M48.062 Gabapentin 100 mg TIDmonitor for worsening sx Type 2 jack betes mellitus 41397239 E11.9 Not currently on medication smonitor BS weekly x 4monitor for sx of hypo/hyper glycemia [id number] Kaylyn Lam MD [facility] on [address] [place] [address] 03/25/2023 16:19:03 03/30/2023 15:58:19 Pulmonary embolism 54223786 I26.99 With submassive PE in 02/2023.Con tinue apixaban 5 mg BIDMonitor resp status. Physical deconditioning 8471318548 9102 R53.1 Very deconditio lizzie.Needs PT/OT for strengthen ing, balance, gait training, safety and function.C ontinue fall precaution s.Monitor for safety. Essential hypertension 28676576 I10 With borderline control on current meds.For now will continue lisinopril 10 mg qd and metoprolol 50 mg qdMonitor BP and labs. Bipolar disorder 1930613 4 F31.89 Mood stable.Con tinue paliperido ne 156 mg IM q 28 days and trazadone 200 mg qhsMonitor mood and behaviors. Psych following. Hypothyroidism 06264141 E03.8 TSH 1.7 inpt.Dima nue levothyrox ine 50 mcg qdMonitor TSH yearly and prn Hyperlipidemia 21265169 E78.49 Continue atorvastat in 20 mg qd and ASA 81 mg qd.Monitor labs as outpt. Pneumonia 289412131 J15. 8 Resolved inpt.Monit or resp function. Gastroesop hageal reflux disease 886668480 K21.9 With hx of massive GI bleedConti nue famotidine 20 mg BIDMonitor sxs.F/U with GI as planned. Peripheral venous insufficiency 21393388 I87.2 Stable at baseline.M onitor Neurogenic claudication 301568039 M48.062 Continue gabapentin 100 mg TIDMonitor sxs Type 2 jack betes mellitus 79102474 E11.9 HgA1C was 5.7 in 01/2023. t controlled .Continue carb controlled diet.Monit or fingerstic ks prn and HgA1C q 3 months. Clostridiu m difficile colitis 778553936 A04.72 Stools are improving. Continue vanco 125 mg q 6 hrs to complete 14 day course on 04/01.Monit or bowel function.W ill need prolonged vanco taper if reccurence . Hypokalemia 72824709 E87 .6 Replaced inpt.Monit or levels. Hypomagnesemia 434889908 E83.42 Continue Mag Oxide 400 mg qdMonitor levels. History of cardiac arrest 574128247 Z86.74 Recovered. F/U with cardio as planned. [id number] STARLA RODRIGUEZ [facility] on [address] [place] [address] 03/30/2023 10:44:15 04/01/2023 20:00:02 Diarrhea 24487806 R19.7 with hypokalemi a- replacedC- diffVancom ycin 125 mg every 6 hours for 9 DaysMagnes ium Oxide 400 mg dailymonit or fluid status intake/out putfollow up with GI. Pulmonary embolism 21385 003 I26.99 apixaban 5mg BIDmonitor clinical sx changesmon itor VS with pulse ox Physical deconditioning 4256672395 9102 R68.89 Weakness/D econdition ingPT/OT eval and tx. Essential hypertension 76958880 I10 lisinopril 10 mgMetoprol ol 50 mg dailymonit or VS/clinica l sx changes Bipolar disorder 9199467 4 F31.9 paliperido ne 156 mg Intramuscu lar monthly q 28 days.Trazo done 200 mg at hsmonitor for mood and behavioral changespsy ch prn Hypothyroidism 45110762 E03.9 Levothyrox ine 50 mcg dailymonit or labs/clini chauncey changes Hyperlipidemia 38732444 E78.5 aspirin 81 mg EC dailyatorv astatin 20 mg oral QD Pneumonia 147988678 J18. 9 WBC 12CXR showed 2 hazy opacities which could potentiall y represent foci of pneumonia. treated with ceftriaxon e and azithromyc in- completed in hospitalmo nitor for clinical sx changes Gastroesop hageal reflux disease 138112630 K21.9 Hx of GI bleedFamot idine 20 mg BIDmonitor for GI upset.foll ow up with GI prn Peripheral venous insufficiency 26674095 I87.2 BLE edemamonit or for worsening edema Neurogenic claudication 157527635 M48.062 Gabapentin 100 mg TIDmonitor for worsening sx Type 2 jack betes mellitus 36205762 E11.9 Not currently on medication smonitor BS weekly x 4monitor for sx of hypo/hyper glycemia [id number] STARLA RODRIGUEZ [facility] on [address] [place] [address] 04/02/2023 12:36:11 04/06/2023 12:40:32 Diarrhea 73976276 R19.7 C-diffVanc omycin 125 mg every 6 hours for 9 Days - completedM agnesium Oxide 400 mg dailymonit or fluid status intake/out putfollow up with GI. Pulmonary embolism 36197 003 I26.99 apixaban 5mg BIDmonitor clinical sx changesmon itor VS with pulse ox Physical deconditioning 9875015042 9102 R68.89 Weakness/D econdition ingPT/OT eval and tx. Essential hypertension 81108829 I10 lisinopril 10 mgMetoprol ol 50 mg dailymonit or VS/clinica l sx changes Bipolar disorder 1743703 4 F31.9 paliperido ne 156 mg Intramuscu lar monthly q 28 days.Trazo done 200 mg at hsmonitor for mood and behavioral changespsy ch prn Hypothyroidism 70308913 E03.9 Levothyrox ine 50 mcg dailymonit or labs/clini chauncey changes Hyperlipidemia 46385400 E78.5 aspirin 81 mg EC dailyatorv astatin 20 mg oral QD Pneumonia 496870357 J18. 9 CXR showed 2 hazy opacities which could potentiall y represent foci of pneumonia. treated with ceftriaxon e and azithromyc in- completed in hospitalmo nitmi for clinical sx changes Gastroesop hageal reflux disease 752331547 K21.9 Hx of GI bleedFamot idine 20 mg BIDmonitor for GI upset.foll ow up with GI prn Peripheral venous insufficiency 22798069 I87.2 HX BLE edematoday there is trace to +1 ankle edema. Neurogenic claudication 478480492 M48.062 Gabapentin 100 mg TIDmonitor for worsening sx Type 2 jack betes mellitus 27821043 E11.9 04/02: there is no documented BGL in PCC. Not currently on medication smonitor BS weekly x 4monitor for sx of hypo/hyper glycemia [id number] STARLA RODRIGUEZ [facility] on [address] [place] [address] 04/07/2023 16:02:36 04/09/2023 15:57:34 Diarrhea 85800925 R19.7 recent hx C-diffVanc omycin 125 mg every 6 hours for 9 Days - completedw ill send stool sample for testing. [id number] STARLA Gonzales [facility] on [address] [place] [address] 04/12/2023 11:33:53 04/14/2023 12:05:16 Diarrhea 43091714 R19.7 positive for C-diffexte nded Vanco 125 mg taper til 05/08/23ques steward 4 grams po bid x 2 weeks at 10 am and 4 pmmonitor fluid status intake/out putf/u with GI. Pulmonary embolism 97236 003 I26.99 apixaban 5mg BIDmonitor for bleeding Essential hypertension 82484736 I10 lisinopril 10 mgMetoprol ol 50 mg qdmonitor bp and adjust meds prn Bipolar disorder 9848847 4 F31.9 paliperido ne 156 mg Intramuscu lar monthly q 28 days.Trazo done 200 mg qhsmonitor for mood and behavioral changespsy ch prn Gastroesop hageal reflux disease 953188473 K21.9 Hx of GI bleedFamot idine 20 mg BIDmonitor for sxs Neurogenic claudication 196178145 M48.062 Gabapentin 100 mg TIDmonitor for worsening sx Type 2 jack betes mellitus 05840311 E11.9 Not currently on medication sBS bid x 1 weekmonito r for sx of hypo/hyper glycemiaA1 c on 04/13 [id number] STARLA RODRIGUEZ [facility] on [address] [place] [address] 04/14/2023 10:07:31 04/28/2023 15:13:34 Diarrhea 89203050 R19.7 positive for C-diffexte nded Vanco 125 mg taper til 05/08/23ques steward 4 grams po bid x 2 weeks at 10 am and 4 pmmonitor fluid status intake/out putf/u with GI.04/14-jesus l add probiotic florastor Pulmonary embolism 35911 003 I26.99 apixaban 5mg BIDmonitor for abnormal bruising/ bleeding Essential hypertension 60280865 I10 lisinopril 10 mgMetoprol ol 50 mg qdmonitor bp and adjust meds prn Bipolar disorder 0839474 4 F31.9 paliperido ne 156 mg Intramuscu lar monthly q 28 days.Trazo done 200 mg qhsmonitor for mood and behavioral changespsy ch prn Gastroesop hageal reflux disease 467051484 K21.9 Hx of GI bleedFamot idine 20 mg BIDmonitor for sxs Neurogenic claudication 132994866 M48.062 Gabapentin 100 mg TIDmonitor for worsening sx Clostridio ides difficile infection 339000186 A04.72 [id number] STARLA RODRIGUEZ [facility] on [address] [place] [address] 04/15/2023 09:55:43 04/28/2023 15:26:19 Diarrhea 04356820 R19.7 positive for C-diffexte nded Vanco 125 mg taper til 05/08/23ques steward 4 grams po bid x 2 weeks at 10 am and 4 pmmonitor fluid status intake/out putf/u with GI.florast or 500 mg BID while on vanco Pulmonary embolism 29092 003 I26.99 apixaban 5mg BIDmonitor clinical sx changesmon itor VS with pulse ox Physical deconditioning 7858871360 9102 R68.89 Weakness/D econdition ingcontinu es to work with therapy. Essential hypertension 49631200 I10 lisinopril 10 mgMetoprol ol 50 mg dailymonit or VS/clinica l sx changes Bipolar disorder 2869090 4 F31.9 paliperido ne 156 mg Intramuscu lar monthly q 28 days.Trazo done 200 mg at hsmonitor for mood and behavioral changespsy ch prn Hypothyroidism 76556453 E03.9 Levothyrox ine 50 mcg dailymonit or labs/clini chauncey changes Hyperlipidemia 85805096 E78.5 aspirin 81 mg EC dailyatorv astatin 20 mg oral QD Pneumonia 914187795 J18. 9 resolvedWB C 12CXR showed 2 hazy opacities which could potentiall y represent foci of pneumonia. treated with ceftriaxon e and azithromyc in- completed in hospitalmo nitor for clinical sx changes Gastroesop hageal reflux disease 714876834 K21.9 Hx of GI bleedFamot idine 20 mg BIDmonitor for GI upset.foll ow up with GI prn Peripheral venous insufficiency 86979297 I87.2 Baseline BLE edemaencou raged to elevate legs when in bedmonitor for worsening edema Neurogenic claudication 763063038 M48.062 Gabapentin 100 mg TIDmonitor for worsening sx Type 2 jack betes mellitus 92269304 E11.9 8: 88Not currently on medication smonitor for sx of hypo/hyper glycemia Clostridio ides difficile infection 460084671 A04.72 continue on vanco taperconti nue florastorc ontinue questran [id number] STARLA RODRIGUEZ [facility] on [address] [place] [address] 04/21/2023 12:43:32 04/28/2023 20:03:25 Diarrhea 89005084 R19.7 04/21: diarrhea improving; reports decreased loose stools- encourage to increase fluid intakeK+ 4.3positiv e for C-diffexte nded Vanco 125 mg taper til 05/08/23ques steward 4 grams po bid x 2 weeks at 10 am and 4 pmmonitor fluid status intake/out putf/u with GI.florast or 500 mg BID while on vanco Pulmonary embolism 73495 003 I26.99 apixaban 5mg BIDmonitor clinical sx changesmon itor VS with pulse ox Physical deconditioning 0062859555 9102 R68.89 Weakness/D econdition ingcontinu es to work with therapy. Essential hypertension 47855172 I10 lisinopril 10 mgMetoprol ol 50 mg dailymonit or VS/clinica l sx changes Bipolar disorder 0006586 4 F31.9 04/21: mood is stablepali peridone 156 mg Intramuscu lar monthly q 28 days.Trazo [facility] for [facility] and behavioral changespsy ch prn Hypothyroidism 12996522 E03.9 Levothyrox ine 50 mcg dailymonit or labs/clini chauncey changes Hyperlipidemia 30933519 E78.5 aspirin 81 mg EC dailyatorv astatin 20 mg oral QD Pneumonia 198722146 J18. 9 resolvedWB C 12CXR showed 2 hazy opacities which could potentiall y represent foci of pneumonia. treated with ceftriaxon e and azithromyc in- completed in hospitalmo nitor for clinical sx changes Gastroesop hageal reflux disease 644382160 K21.9 Hx of GI bleedFamot idine 20 mg BIDmonitor for GI upset.foll ow up with GI prn Peripheral venous insufficiency 26962992 I87.2 Baseline BLE edemaencou raged to elevate legs when in bedmonitor for worsening edema Neurogenic claudication 325645580 M48.062 Gabapentin 100 mg TIDmonitor for worsening sx Type 2 jack betes mellitus 37132029 E11.9 04/21 bgl 114mainly all under 120Not currently on medication smonitor for sx of hypo/hyper glycemia Clostridio ides difficile infection 603686082 A04.72 continue on vanco taperconti nue florastorc ontinue questran [id number] STARLA RODRIGUEZ [facility] on [address] [place] [address] 04/27/2023 07:39:22 05/04/2023 12:06:38 Diarrhea 84968976 R19.7 04/26: diarrhea improving; having 1-2 episodes dailyrepor ts decreased loose stools- encourage to increase fluid intakeK+ 4.3positiv e for C-diffexte nded Vanco 125 mg taper til 05/08/23ques steward 4 grams po bid x 2 weeks at 10 am and 4 pmmonitor fluid status intake/out putf/u with GI.florast or 500 mg BID while on vanco Pulmonary embolism 14818 003 I26.99 apixaban 5mg BIDmonitor clinical sx changesmon itor abnormal bleeding or bruising.m onitor VS with pulse ox Physical deconditioning 1033377139 9102 R68.89 Weakness/D econdition ingcontinu es to work with therapy. Essential hypertension 62715863 I10 BP 142/82lisi nopril 10 mgMetoprol ol 50 mg dailymonit or VS/clinica l sx changes Bipolar disorder 4739646 4 F31.9 mood is stablepali peridone 156 mg Intramuscu lar monthly q 28 days.Trazo done 200 mg at hsmonitor for mood and behavioral changespsy ch prn Hypothyroidism 81653433 E03.9 Levothyrox ine 50 mcg dailymonit or labs/clini chauncey changes Hyperlipidemia 43145586 E78.5 aspirin 81 mg EC dailyatorv astatin 20 mg oral QD Pneumonia 345712448 J18. 9 resolvedWB C 12CXR showed 2 hazy opacities which could potentiall y represent foci of pneumonia. treated with ceftriaxon e and azithromyc in- completed in hospitalmo nitor for clinical sx changes Gastroesop hageal reflux disease 274198090 K21.9 Hx of GI bleedFamot idine 20 mg BIDmonitor for GI upset.foll ow up with GI prn Peripheral venous insufficiency 08670573 I87.2 Baseline BLE edemaencou raged to elevate legs when in bedmonitor for worsening edema Neurogenic claudication 130642065 M48.062 Gabapentin 100 mg TIDmonitor for worsening sx Type 2 jack betes mellitus 48252861 E11.9 bgl 114mainly all under 120Not currently on medication smonitor for sx of hypo/hyper glycemia Clostridio ides difficile infection 551241637 A04.72 continue on vanco taperconti nue florastorc ontinue questran [id number] STARLA RODRIGUEZ [facility] on [address] [place] [address] 05/06/2023 09:10:42 05/11/2023 16:20:00 Diarrhea 92191051 R19.7 positive for C-diffexte nded Vanco 125 mg taper til 05/08/23ques steward 4 grams po bid x 2 weeks at 10 am and 4 pmmonitor fluid status intake/out putf/u with GI.florast or 500 mg BID while on vanco Pulmonary embolism 54798 003 I26.99 apixaban 5mg BIDmonitor clinical sx changesmon itor abnormal bleeding or bruising.m onitor VS with pulse ox Physical deconditioning 0206473801 9102 R68.89 Weakness/D econdition ingcontinu es to work with therapy. Essential hypertension 67406148 I10 BP 142/82lisi nopril 10 mgMetoprol ol 50 mg dailymonit or VS/clinica l sx changes Bipolar disorder 9739836 4 F31.9 mood is stablepali peridone 156 mg Intramuscu lar monthly q 28 days.Trazo done 200 mg at hsmonitor for mood and behavioral changespsy ch prn Hypothyroidism 87539141 E03.9 Levothyrox ine 50 mcg dailymonit or labs/clini chauncey changes Hyperlipidemia 85970775 E78.5 aspirin 81 mg EC dailyatorv astatin 20 mg oral QD Pneumonia 767868655 J18. 9 resolvedWB C 12CXR showed 2 hazy opacities which could potentiall y represent foci of pneumonia. treated with ceftriaxon e and azithromyc in- completed in hospitalmo nitor for clinical sx changes Gastroesop hageal reflux disease 929976219 K21.9 Hx of GI bleedFamot idine 20 mg BIDmonitor for GI upset.foll ow up with GI prn Peripheral venous insufficiency 60260128 I87.2 Baseline BLE edemaencou raged to elevate legs when in bedmonitor for worsening edema Neurogenic claudication 636538592 M48.062 Gabapentin 100 mg TIDmonitor for worsening sx Type 2 jack betes mellitus 76134235 E11.9 bgl 114mainly all under 120Not currently on medication smonitor for sx of hypo/hyper glycemia Clostridio ides difficile infection 955647047 A04.72 continue on vanco taperconti nue florastorc ontinue questran [id number] Sana Enriquez MD [facility] on [address] [place] [address] 05/07/2023 08:15:55 05/12/2023 08:27:51 Bipolar disorder 16399093 F31.89 trazodone 200 mg at hsgabapent in 100 mg tidpaliper idone 156 mg IM monthlywil l monitor Clostridiu m difficile colitis 519735323 A04.72 vancomycin 125 mg daily through today, then q72 hours through 06/09/23wi ll monitor Essential hypertension 21528116 I10 metoprolol 50 mg dailylisin opril 10 mg dailywill monitor Gastroesop hageal reflux disease 057302728 K21.9 famotidine 20 mg bidwill monitor History of cardiac arrest 041625520 Z86.74 ASA 81 mg dailymetop rolol 50 mg dailyatorv astatin 20 mg dailyfu cardiology Type 2 jack betes mellitus 34267824 E11.9 History of pulmonary embolus 688490078 Z86.711 apixaban 5 mg bidwill monitor Hyperlipidemia 44187294 E78.49 atorvastat in 20 mg dailywill monitor Hypothyroidism 19875878 E03.8 levothyrox ine 50 mcg dailywill monitor [id number] MARTY SANDOVAL, FUNERAL PLANNING COUNSELORGood [facility] on [address] [place] [address] 05/13/2023 17:44:17 05/19/2023 15:41:13 Diarrhea 28430994 R19.7 resolvedpo sitive for C-diffexte nded Vanco 125 mg taper til 05/08/23ques steward 4 grams po bid x 2 weeks at 10 am and 4 pmmonitor fluid status intake/out putf/u with GI.florast or 500 mg BID while on vanco Pulmonary embolism 06725 003 I26.99 05/13 denies any shortness of breathapix aban 5mg BIDmonitor clinical sx changesmon itor abnormal bleeding or bruising.m onitor VS with pulse ox Physical deconditioning 3692776707 9102 R68.89 Weakness/D econdition ingcontinu es to work with therapy. Essential hypertension 26375321 I10 lisinopril 10 mgMetoprol ol 50 mg dailymonit or VS/clinica l sx changes Bipolar disorder 8423222 4 F31.9 mood is stablepali peridone 156 mg Intramuscu lar monthly q 28 days.Trazo done 200 mg at hsmonitor for mood and behavioral changespsy ch prn Hypothyroidism 51891401 E03.9 Levothyrox ine 50 mcg dailymonit or labs/clini chauncey changes Hyperlipidemia 21980822 E78.5 aspirin 81 mg EC dailyatorv astatin 20 mg oral QD Pneumonia 093034566 J18. 9 resolvedWB C 12CXR showed 2 hazy opacities which could potentiall y represent foci of pneumonia. treated with ceftriaxon e and azithromyc in- completed in hospitalmo nitor for clinical sx changes Gastroesop hageal reflux disease 627435757 K21.9 Hx of GI bleedFamot idine 20 mg BIDmonitor for GI upset.foll ow up with GI prn Peripheral venous insufficiency 83605213 I87.2 Baseline BLE edemaencou raged to elevate legs when in bedmonitor for worsening edema Neurogenic claudication 196787014 M48.062 Gabapentin 100 mg TIDmonitor for worsening sx Type 2 jack betes mellitus 05327648 E11.9 mainly all under 120Not currently on medication smonitor for sx of hypo/hyper glycemia Clostridio ides difficile infection 408815296 A04.72 9/7: completed abx on 05/08, there has been no reported diarrhea.c ontinue on vanco taperconti nue florastorc ontinue questran [id number] STARLA RODRIGUEZ [facility] on [address] [place] [address] 05/21/2023 17:11:21 05/25/2023 15:07:02 Diarrhea 62214758 R19.7 05/21: reported diarrhea x 6 overnighti nformed that nursing sent stool sample sent for cdiff although he more than likely can test + for up 2 months after completing . resolvedpo sitive for C-diffexte nded Vanco 125 mg taper til 05/08/23ques steward 4 grams po bid x 2 weeks at 10 am and 4 pmmonitor fluid status intake/out putf/u with GI.florast or 500 mg BID while on vanco Pulmonary embolism 66711 003 I26.99 05/13 denies any shortness of breathapix aban 5mg BIDmonitor clinical sx changesmon itor abnormal bleeding or bruising.m onitor VS with pulse ox Physical deconditioning 6152095456 9102 R68.89 Weakness/D econdition ingcontinu es to work with therapy. Essential hypertension 57455892 I10 lisinopril 10 mgMetoprol ol 50 mg dailymonit or VS/clinica l sx changes Bipolar disorder 2622267 4 F31.9 mood is stablepali peridone 156 mg Intramuscu lar monthly q 28 days.Trazo done 200 mg at hsmonitor for mood and behavioral changespsy ch prn Hypothyroidism 88554171 E03.9 Levothyrox ine 50 mcg dailymonit or labs/clini chauncey changes Hyperlipidemia 97379264 E78.5 aspirin 81 mg EC dailyatorv astatin 20 mg oral QD Pneumonia 815115911 J18. 9 resolvedWB C 12CXR showed 2 hazy opacities which could potentiall y represent foci of pneumonia. treated with ceftriaxon e and azithromyc in- completed in hospitalmo nitor for clinical sx changes Gastroesop hageal reflux disease 336489501 K21.9 Hx of GI bleedFamot idine 20 mg BIDmonitor for GI upset.foll ow up with GI prn Peripheral venous insufficiency 52686893 I87.2 Baseline BLE edemaencou raged to elevate legs when in bedmonitor for worsening edema Neurogenic claudication 423510706 M48.062 Gabapentin 100 mg TIDmonitor for worsening sx Type 2 jack betes mellitus 32789068 E11.9 mainly all under 120Not currently on medication smonitor for sx of hypo/hyper glycemia Clostridio ides difficile infection 201237622 A04.72 05/13: completed abx on 05/08, there has been no reported diarrhea.c ontinue on vanco taperconti nue florastorc ontinue questran [id number] STARLA RODRIGUEZ [facility] on [address] [place] [address] 05/24/2023 09:37:05 05/26/2023 10:29:07 Diarrhea 19199954 R19.7 05/24: no reported diarrhea in 2 days, he tells me he had regular bowel movement today.rest arted on Questran 05/21: reported diarrhea x 6 overnighti nformed that nursing sent stool sample sent for cdiff although he more than likely can test + for up 2 months after completing . resolvedpo sitive for C-diffexte nded Vanco 125 mg taper til 05/08/23ques steward 4 grams po bid x 2 weeks at 10 am and 4 pmmonitor fluid status intake/out putf/u with GI.florast or 500 mg BID while on vanco Pulmonary embolism 06577 003 I26.99 continueap ixaban 5mg BIDmonitor clinical sx changesmon itor abnormal bleeding or bruising.m onitor VS with pulse ox Physical deconditioning 9877583764 9102 R68.89 Weakness/D econdition ingcontinu es to work with therapy. Essential hypertension 91602655 I10 lisinopril 10 mgMetoprol ol 50 mg dailymonit or VS/clinica l sx changes Bipolar disorder 7199114 4 F31.9 mood is stablepali peridone 156 mg Intramuscu lar monthly q 28 days.Trazo done 200 mg at hsmonitor for mood and behavioral changespsy ch prn Hypothyroidism 03833908 E03.9 Levothyrox ine 50 mcg dailymonit or labs/clini chauncey changes Hyperlipidemia 64852664 E78.5 aspirin 81 mg EC dailyatorv astatin 20 mg oral QD Pneumonia 997262777 J18. 9 resolvedWB C 12CXR showed 2 hazy opacities which could potentiall y represent foci of pneumonia. treated with ceftriaxon e and azithromyc in- completed in hospitalmo nitor for clinical sx changes Gastroesop hageal reflux disease 522858045 K21.9 Hx of GI bleedFamot idine 20 mg BIDmonitor for GI upset.foll ow up with GI prn Peripheral venous insufficiency 69840994 I87.2 Baseline BLE edemaencou raged to elevate legs when in bedmonitor for worsening edema Neurogenic claudication 919905546 M48.062 Gabapentin 100 mg TIDmonitor for worsening sx Type 2 jack betes mellitus 08135632 E11.9 mainly all under 120Not currently on medication smonitor for sx of hypo/hyper glycemia Clostridio ides difficile infection 006846193 A04.72 05/13: completed abx on 05/08, there has been no reported diarrhea.c ontinue on vanco taperconti nue florastorc ontinue questran [id number] STARLA RODRIGUEZ [facility] on [address] [place] [address] 05/26/2023 14:28:00 06/08/2023 13:05:54 Impacted cerumen of bilateral ears 4639572354 538300 H61.23 see hpidebrox gtt 5 gtt to each ear BID to soften waxwill irrigate on next visit [id number] STARLA RODRIGUEZ [facility] on [address] [place] [address] 06/01/2023 12:43:48 06/08/2023 16:18:54 Impacted cerumen of bilateral ears 1883603596 627094 H61.23 see hpidebrox gtt 5 gtt to each ear BID to soften waxwill irrigate on next visit, basic supplies not available at time of visit. [id number] STARLA RODRIGUEZ [facility] on [address] [place] [address] 06/04/2023 12:42:00 06/09/2023 11:30:42 Diarrhea 72526726 R19.7 06/04; as of noted no reported diarrhea.: no reported diarrhea in 2 days, he tells me he had regular bowel movement today.rest arted on Questran 05/21: reported diarrhea x 6 overnighti nformed that nursing sent stool sample sent for cdiff although he more than likely can test + for up 2 months after completing . resolvedpo sitive for C-diffexte nded Vanco 125 mg taper til 05/08/23ques steward 4 grams po bid x 2 weeks at 10 am and 4 pmmonitor fluid status intake/out putf/u with GI.florast or 500 mg BID while on vanco Pulmonary embolism 14766 003 I26.99 continueap ixaban 5mg BIDmonitor clinical sx changesmon itor abnormal bleeding or bruising.m onitor VS with pulse ox Essential hypertension 24583195 I10 lisinopril 10 mgMetoprol ol 50 mg dailymonit or VS/clinica l sx changes Gastroesop hageal reflux disease 978648174 K21.9 Hx of GI bleedFamot idine 20 mg BIDmonitor for GI upset.foll ow up with GI prn Neurogenic claudication 384970537 M48.062 Gabapentin 100 mg TIDmonitor for worsening sx Type 2 jack betes mellitus 03700531 E11.9 mainly all under 120Not currently on medication smonitor for sx of hypo/hyper glycemia Clostridio ides difficile infection 250346514 A04.72 05/13: completed abx on 05/08, there has been no reported diarrhea.c ontinue on vanco taperconti nue florastorc ontinue questran [id number] STARLA RODRIGUEZ [facility] on [address] [place] [address] 06/14/2023 09:07:46 06/21/2023 15:02:11 Diarrhea 63039042 R19.7 06/04; as of noted no reported diarrhea.: no reported diarrhea in 2 days, he tells me he had regular bowel movement today.rest arted on Questran 05/21: reported diarrhea x 6 overnighti nformed that nursing sent stool sample sent for cdiff although he more than likely can test + for up 2 months after completing . resolvedpo sitive for C-diffexte nded Vanco 125 mg taper til 05/08/23ques steward 4 grams po bid x 2 weeks at 10 am and 4 pmmonitor fluid status intake/out putf/u with GI.florast or 500 mg BID while on vanco Pulmonary embolism 80848 003 I26.99 continueap ixaban 5mg BIDmonitor clinical sx changesmon itor abnormal bleeding or bruising.m onitor VS with pulse ox Essential hypertension 44125290 I10 lisinopril 10 mgMetoprol ol 50 mg dailymonit or VS/clinica l sx changes Gastroesop hageal reflux disease 165276021 K21.9 Hx of GI bleedFamot idine 20 mg BIDmonitor for GI upset.foll ow up with GI prn Neurogenic claudication 815248430 M48.062 Gabapentin 100 mg TIDmonitor for worsening sx Type 2 jack betes mellitus 30311651 E11.9 mainly all under 120Not currently on medication smonitor for sx of hypo/hyper glycemia Clostridio ides difficile infection 876361077 A04.72 05/13: completed abx on 05/08, there has been no reported diarrhea.c ontinue on vanco taperconti nue florastorc ontinue questran [id number] STARLA RODRIGUEZ [facility] on [address] [place] [address] 06/24/2023 10:48:24 06/29/2023 10:33:20 Diarrhea 03027827 R19.7 [id number] /19: as of note there has been no reported diarrhea; as of noted no reported diarrhea.: no reported diarrhea in 2 days, he tells me he had regular bowel movement today.rest arted on Questran: reported diarrhea x 6 overnighti nformed that nursing sent stool sample sent for cdiff although he more than likely can test + for up 2 months after completing .positive for C-diffexte nded Vanco 125 mg taper til 05/08/23ques steward 4 grams po bid x 2 weeks at 10 am and 4 pmmonitor fluid status intake/out putf/u with GI.florast or 500 mg BID while on vanco Pulmonary embolism 51823 003 I26.99 continueap ixaban 5mg BIDmonitor clinical sx changesmon itor abnormal bleeding or bruising.m onitor VS with pulse ox Essential hypertension 16534764 I10 stablelisi nopril 10 mgMetoprol ol 50 mg dailymonit or VS/clinica l sx changes Gastroesop hageal reflux disease 042615890 K21.9 Hx of GI bleedFamot idine 20 mg BIDmonitor for GI upset.foll ow up with GI prn Neurogenic claudication 567873038 M48.062 Gabapentin 100 mg TIDmonitor for worsening sx Type 2 jack betes mellitus 97907593 E11.9 mainly all under 120Not currently on medication smonitor for sx of hypo/hyper glycemia Clostridio ides difficile infection 619311813 A04.72 05/13: completed abx on 05/08, there has been no reported diarrhea.c ontinue on vanco taperconti nue florastorc ontinue questran [id number] STARLA RODRIGUEZ [facility] on [address] [place] [address] 06/28/2023 10:02:23 07/08/2023 14:12:47 Diarrhea 66758083 R19.7 resolvedtx for Cdiff. Pulmonary embolism 98403 003 I26.99 continueap ixaban 5mg BIDfollow up with PCP out patient. Essential hypertension 15423950 I10 continueli sinopril 10 mgMetoprol ol 50 mg dailyfollo w up with PCP out patient. Gastroesop hageal reflux disease 111656517 K21.9 Hx of GI bleedFamot idine 20 mg BIDfollow up with GI prnfollow up with PCP out patient. Neurogenic claudication 310799753 M48.062 Gabapentin 100 mg TIDfollow up with PCP out patient. Type 2 jack betes mellitus 53702481 E11.9 mainly all under 120Not currently on medication sdiet controlled follow up with PCP out patient. Clostridio ides difficile infection 196888928 A04.72 resolved, tx with Vanco . Health Concerns Section Related Observation LastModified by Organization Detai ls LastModified Time None Recorded Concern Status LastModified by Organization Details LastModified Time None Recorded Advance Directives Directive Y: Payers Insurance Date Sequence Insurance Name Policy Number Policy Erazo Covered Member ID Erazo Member ID Guarantor Name 07/09/2023 1 [facility] - DOS ON OR AFTER 2022 - MEDICARE ADVANTAGE [place] (MEDICARE REPLACEMENT/ADV ANTAGE - PPO) Naeem Lai [id number] Naeem Lai Notes Date Note Type Note Provider Name and Address Organization Details Recorded Time 06/01/2023 text/html ROS as noted in the HPI Seen today for acute rounding. Nursing reports that pt c/o of bilateral ears stuffiness , he tells me that he has wax build up and this have been an ongoing problem all his life. On exam there is bilateral ears impacted with cerumen, although he states some hearing improvement there continues to be impaction. Plan of care discussed, he agrees with ear irrigation. on 06/02. nursing updated. STARLA RODRIGUEZ [address] [facility], [address], [place], [address], [facility] [employer] [facility] 06/01/2023 17:38:59 06/04/2023 text/html ROS as noted in the HPI Mr. 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 Medical history is remarkable for bipolar disorder, hypertension, GERD, hyperlipidemia, history of cardiac arrest, hypothyroidism, hyperlipidemia, DM, history of PE Patient was admitted to facility on 03/22/23 after [facility] stay for worsening weakness. Patient had recently been discharged from a rehab facility where he had been recovering from large GI bleed. During prior hospital stay patient had 3 separate episodes of cardiac arrest (PEA) as well as prolonged ICU stay for subsequent right atrial thrombus. Patient was given TNK for right atrial thrombus, however continued to have right ventricular strain and was found to have a submassive PE. Patient presented [place] [facility] [place] with worsening weakness and he had been having diarrhea for more than a month. Patient tested positive for CDiff. He was started on vancomycin 125 mg orally q6h and transferred to [facility] on 03/22/23.Recent completed second round of abx for c-diff without diarrhea greater than one week, nursing reports today overnight 6 episodes of diarrhea. He has been stable, bilateral ears irrigated due to impaction with minimal results, he was previously ordered debroxx to soften wax prior to irrigation he tells me that he did not receive ear gtts. He has not had any recent diarrhea. he offers no other complaints. There are no acute nursing complaints. cash management clerk for [facility] asked to order ear curettes, Naeem updated that another irrigation will be performed, he is in agreement. STARLA RODRIGUEZ [address] [facility], [address], [place], [address], [facility] [employer] 06/04/2023 15:13:07 06/14/2023 text/html ROS as noted in the HPI Seen today for cute care visit. Medical history is remarkable for bipolar disorder, hypertension, GERD, hyperlipidemia, history of cardiac arrest, hypothyroidism, hyperlipidemia, DM, history of PE Patient was admitted to facility on 03/22/23 after [facility] stay for worsening weakness. Patient had recently been discharged from a rehab facility where he had been recovering from large GI bleed. During prior hospital stay patient had 3 separate episodes of cardiac arrest (PEA) as well as prolonged ICU stay for subsequent right atrial thrombus. Patient was given TNK for right atrial thrombus, however continued to have right ventricular strain and was found to have a submassive PE. Patient presented to ER at [facility] [place] 03/16/23 with worsening weakness and he had been having diarrhea for more than a month. Patient tested positive for CDiff. He was started on vancomycin 125 mg orally q6h and transferred to [facility] on 03/22/23.Recent completed second round of abx for c-diff without diarrhea greater than one week, nursing reports today overnight 6 episodes of diarrhea. Today he is stable, he continues to have decrease hearing due to impaction, Ear drops re-ordered on previous visit. Plan for another irrigation, nursing updated, there is no other complaints at this visit. STARLA RODRIGUEZ [address] [facility], [address], [place], [address], [facility] [employer] 06/19/2023 19:31:21 06/24/2023 text/html ROS as noted in the HPI Seen today for cute care visit. Medical history is remarkable for bipolar disorder, hypertension, GERD, hyperlipidemia, history of cardiac arrest, hypothyroidism, hyperlipidemia, DM, history of PE Patient was admitted to facility on 03/22/23 after [facility] stay for worsening weakness. Patient had recently been discharged from a rehab facility where he had been recovering from large GI bleed. During prior hospital stay patient had 3 separate episodes of cardiac arrest (PEA) as well as prolonged ICU stay for subsequent right atrial thrombus. Patient was given TNK for right atrial thrombus, however continued to have right ventricular strain and was found to have a submassive PE. Patient presented to ER at [facility] [place] 03/16[place]23 with worsening weakness and he had been having diarrhea for more than a month. Patient tested positive for CDiff. He was started on vancomycin 125 mg orally q6h and transferred to [facility] on 03/22/23.Recent completed second round of abx for c-diff without diarrhea greater than one week, nursing reports today overnight 6 episodes of diarrhea. On exam he is stable, offers no new complaints. there is no acute nursing concerns. STARLA RODRIGUEZ [address] [facility], [address], [place], [address], [employer] 06/24/2023 13:21:20 06/28/2023 text/html ROS as noted in the HPI Mr. Lai is seen today for discharge. Medical history is remarkable for bipolar disorder, hypertension, GERD, hyperlipidemia, history of cardiac arrest, hypothyroidism, hyperlipidemia, DM, history of PE. Patient was admitted to facility on 03/22/23 after [facility] stay for worsening weakness. Patient had recently been discharged from a rehab facility where he had been recovering from large GI bleed. During prior hospital stay patient had 3 separate episodes of cardiac arrest (PEA) as well as prolonged ICU stay for subsequent right atrial thrombus. Patient was given TNK for right atrial thrombus, however continued to have right ventricular strain and was found to have a submassive PE. Presented to ER at [facility] [place] 03/16/23 with worsening weakness and he had been having diarrhea for more than a month. Patient tested positive for CDiff. He was started on vancomycin 125 mg orally q6h and transferred to [facility] on 03/22/23. Naeem has been medically stable and can be discharge to home with medications and VNA services. STARLA RODRIGUEZ [address] [facility], [address], [place], [address], [employer] 06/28/2023 12:11:07
--- OUTSIDE RECORDS SUMMARY | 2025-08-01 11:25 | XMS_ITS | Encounter Summary ---
Author Organization [employer] Address [address] [place] [address] Care Team Providers Care Denture Waxer Name Role Phone Sarah Holt MD Primary Care Provider [phone] Rina Suarez PharmD Unavailable [phone] James Dutton CNP Primary Care Provider Alyx Valadez MD Primary Care Provider [phone] Reason for Visit * Reason Comments Med Refill Encounter Details Date Type Department Care Team (Late st Contact Info) Description 09/23/2022 Refill [facility] [address] [place] [address] Sarah Holt MD [address] [place] [address] Pain Social History Tobacco Use Types Packs/Day Years [...] Info) Description 10/01/2025 1:00 PM EST Telemedicine [facility] [address] [place] [address] Rina Suarez, PharmD [address], [place] [phone] documented as of this encounter Visit Diagnoses Diagnosis Pain Generalized pain documented in this encounter Care Teams Denture Waxer Relationship Specialty Start Date End Date Sarah Holt MD [address] [place] [address] PCP - General Family Medicine 09/12/13 07/03/25 James Dutton CNP [address] [place] [address] PCP - General Family Medicine 07/04/25 07/19/25 Alyx Valadez MD [address] [place] [address] PCP - General Family Medicine 07/20/25 Rina Suarez PharmD [address] [place] [address] Pharmacist Internal Medicine 10/27/24 [facility] 06/18/24 Pawan Valles MD [address] [place] [address] Psychiatrist 08/01/25 [facility] 08/01/25 Megan Lr 08/01/25 documented as of this encounter
--- OUTSIDE RECORDS SUMMARY | 2025-08-01 11:25 | XMS_ITS | Encounter Summary ---
Author Organization [employer] Address [address] [facility] 7t [place] [address] Care Team Providers Care Chancery Clerk Name Role Phone Sarah Holt MD Primary Care Provider [phone] Rina Suarez PharmD Unavailable [phone] James Dutton CNP Primary Care Provider Alyx Valadez MD Primary Care Provider Encounter Details Date Type Department Care Team (Late st Contact Info) Description 11/13/2022 Orders Only [facility] [address] [place] [address] Sarah Holt MD [address] [place], [place] [phone] Colon cancer screening (Primary Dx) Social History Tobacco Use Types Packs/Day Years [...] Info) Description 10/01/2025 1:00 PM EST Telemedicine [facility] [address] [place] [address] Rina Suarez, PharmD [address] [place], [place] [phone] documented as of this encounter Visit Diagnoses Diagnosis Colon cancer screening- Primary Special screening for malignant neoplasms, colon documented in this encounter Care Teams Chancery Clerk Relationship Specialty Start Date End Date Sarah Holt MD [address] [place] [address] PCP - General Family Medicine 09/12/13 07/03/25 James Dutton CNP [address] [place] [address] PCP - General Family Medicine 07/04/25 07/19/25 Alyx Valadez MD [address] [place] [address] PCP - General Family Medicine 07/20/25 Rnia Suarez PharmD [address] [place] [address] Pharmacist Internal Medicine 10/27/24 [facility] 06/18/24 Pawan Valles MD [address] [place] [address] Psychiatrist 08/01/25 [facility] 08/01/25 Megan Lr 08/01/25 documented as of this encounter
--- OUTSIDE RECORDS SUMMARY | 2025-08-01 11:25 | XMS_ITS | Encounter Summary ---
Author Organization [employer] Address [address] [facility] [address] 7t [place] [address] Care Team Providers Care Pattern Checker Name Role Phone Sarah Holt MD Primary Care Provider [phone] Rina Suarez PharmD Unavailable [phone] James Dutton CNP Primary Care Provider [phone] Alyx Valadez MD Primary Care Provider [phone] Reason for Visit * Reason Onset Date Comments medication questions 10/15/2023 Encounter Details Date Type Department Care Team (Late st Contact Info) Description 10/15/2023 Telephone [facility] MED[facility] [address] [place] [address] Sarah Holt MD [address] [place], [place] [phone] medication questions Social History Tobacco Use Types Packs/Day Years [...] Telephone Encounter - Ca Murphy RN - 10/21/2023 10:22 AM EST TC X1 to VN regarding message below. Unable to LVM as call was answered and dropped * Telephone Encounter - Tammy Hernandez - 10/15/2023 3:53 PM EST Tc from [place] with [facility] requesting a call back to discuss pt medications please contactat [phone] documented in this encounter Plan of Treatment Upcoming Encounters Date Type Department Care Team (Late st Contact Info) Description 10/01/2025 1:00 PM EST Telemedicine [facility]S [address] [place] [address] Rina Suarez PharmD [address] [place] [address] documented as of this encounter Visit Diagnoses Not on filedocumented in this encounter Care Teams Pattern Checker Relationship Specialty Start Date End Date Sarah Holt MD [address] [place] [address] PCP - General Family Medicine 09/12/13 07/03/25 James Dutton CNP [address] [place] [address] PCP - General Family Medicine 07/04/25 07/19/25 Alyx Valadez MD 505 [place] [address] PCP - General Family Medicine 07/20/25 Rina Suarez PharmD [address] [place] [address] Pharmacist Internal Medicine 10/27/24 [facility] 06/18/24 Pawan Valles MD [address] [place] [address] Psychiatrist 08/01/25 [facility] [place] 08/01/25 Megan Lr 08/01/25 documented as of this encounter
--- OUTSIDE RECORDS SUMMARY | 2025-08-01 11:26 | XMS_ITS | Encounter Summary ---
Author Organization [employer] Address [address] 7t [place] [address] Care Team Providers Care Airfield Services Officer Name Role Phone Sarah Holt MD Primary Care Provider [phone] Rina Suarez PharmD Unavailable [phone] James Dutton CNP Primary Care Provider [phone] Alyx Valadez MD Primary Care Provider [phone] Reason for Visit * Reason Onset Date Comments FYI 09/01/2024 Encounter Details Date Type Department Care Team (Late st Contact Info) Description 09/01/2024 Telephone [facility] MEDICINE [address] [place] [address] Sarah Holt MD [address] [place], [place] [phone] Social History Tobacco Use Types Packs/Day Years [...] encounter Miscellaneous Notes * Telephone Encounter - STARLA Gutierrez - 09/04/2024 12:38 PM EST Good afternoon, glad that he has upcoming appt this week with his Neurologist. If BP values remain low, I would recommend that he be scheduled for a clinic visit. Thank you. * Telephone Encounter - Shanta Cox RN - 09/04/2024 9:14 AM EST TC to patient . Spoke with patient and patient sister. Pt and family are concerned d/t pt having increased weakness, increased tremors, and decreased BP x 1 month. 1.5 months ago, Pt. states he did not fall , rather started slipping off his walker and lower himself to floor. Bilateral lower extremities will occasionally give out when he is attempting to move around. His right lower extremity is worse than left. Patient does have an appointment with a Neurologist (he was unsure of the name) at [facility] on 09/07/24. Educated patient to slowly lower himself to the floor if possible if legs give out. If fall occurs, and there is LOC, or head strike, call EMS/911 immediately. Explained that message would be sent to Dr. Holt to review and advise. Patient states understanding and agrees with plan. * Telephone Encounter - Ankit Hart - 09/01/2024 3:30 PM EST Tc from [facility]note 3[facility] service (caroline) is calling to report that pt has fallen the other day and has increased trimmers and increased weakness. And pt is high risk for falling. Caroline states to reach out to pt before reaching out to her. Pt information: [phone] documented in this encounter Plan of Treatment Upcoming Encounters Date Type Department Care Team (Late st Contact Info) Description 10/01/2025 1:00 PM EST Telemedicine [facility]S 505 [place] [address] Rina Suarez PharmD 230 [place] [address] documented as of this encounter Visit Diagnoses Not on filedocumented in this encounter Care Teams Airfield Services Officer Relationship Specialty Start Date End Date Sarah Holt MD [address] [place] [address] PCP - General Family Medicine 09/12/13 07/03/25 James Dutton CNP 505 [place] [address] PCP - General Family Medicine 07/04/25 07/19/25 Alyx Valadez MD 505 [place] [address] PCP - General Family Medicine 07/20/25 Rina Suarez PharmD [address] [place] [address] Pharmacist Internal Medicine 10/27/24 [facility] 06/18/24 Pawan Valles MD [address] [place] [address] Psychiatrist 08/01/25 [facility] 08/01/25 Megan Lr 08/01/25 documented as of this encounter
--- OUTSIDE RECORDS SUMMARY | 2025-08-01 11:26 | XMS_ITS | Clinical Summary ---
Author Organization [employer] Address 75 [facility] 7t [place] [address] Care Team Providers Care Track Service Worker Name Role Phone Rina Suarez PharmD Unavailable [phone] Alyx Valadez MD Primary Care Provider [phone] Allergies No known active allergies Medications Multiple Vitamin (Multivitamin) tablet TAKE ONE TABLET EVERY DAY 90 tablet 4 023 Active Invega Sustenna 156 MG/ML suspension prefilled syringe INJECT 156 MG (ONE ML) INTRAMUSCULARLY EVERY FOUR WEEKS 023 Active Acetaminophen Extra Strength 500 MG tablet TAKE ONE TABLET BY MOUTH EVERY 6 HOURS NEEDED 15 tablet 024 Active amLODIPine (Norvasc) 10 MG tablet TAKE ONE TABLET EVERY MORNING 90 tablet 3 024 Active famotidine (Pepcid) 20 MG tablet TAKE ONE TABLET EVERY MORNING 90 tablet 3 Active folic acid (Folvite) 1 MG tablet TAKE ONE TABLET EVERY MORNING 90 tablet 3 024 Active Eliquis 5 MG tablet TAKE ONE TABLET TWICE DAILY 60 tablet 11 07/31/20 25 2:51 PM EST Active furosemide (Lasix) 20 MG tablet Take 1 tablet (20 mg) by mouth Once per day. 90 tablet 3 024 2024 Active magnesium oxide (Mag-Ox) 400 MG tablet TAKE ONE TABLET EVERY MORNING 90 tablet 3 025 Active levothyroxine (Synthroid, Levoxyl) 50 MCG tabletIndicati ons:Pain TAKE ONE TABLET DAILY BEFORE BREAKFAST 90 tablet 3 025 Active Ventolin HFA 108 (90 Base) MCG/ACT inhaler INHALE TWO PUFFS EVERY 6 HOURS Active Alcohol Swabs (Alcohol Prep) 70 % pads USE DIRECTED DAILY Active Blood Glucose Monitoring Suppl (SymBio PharmaceuticalsTouch Verio Flex System) w/Device kit use as directed Active gabapentin (Neurontin) 300 MG capsule Take 300 mg by mouth at bedtime. Active Anoro Ellipta 62.5-25 MCG/ACT aerosol powder Active fenofibrate (Tricor) 48 MG tablet Take 1 tablet (48 mg) by mouth Once per day. 30 tablet 11 07/31/20 2:51 PM EST Active cholecalcifero l (Vitamin D-3) 50 MCG (1999) capsuleIndicat ions:Hypothyro idism, unspecified type Take 1 capsule (50 mcg) by mouth Once per day. 30 capsule 11 07/31/20 2:51 PM EST 2025 Active hydroCHLOROthi azide 12.5 MG tablet Take 1 tablet (12.5 mg) by mouth Once per day. 30 tablet 11 07/31/20 2:51 PM EST Active metoprolol tartrate (Lopressor) 50 MG tablet TAKE ONE TABLET EVERY MORNING 90 tablet 3 Active Aspirin Adult Low Strength 81 MG EC tablet TAKE ONE TABLET DAILY AT NOON 30 tablet Active Lancets (SymBio PharmaceuticalsTouch Delica Plus [id number]) misc TEST BLOOD SUGAR ONCE DAILY DIRECTED 100 each Active glucose blood (SymBio PharmaceuticalsTouch Verio) test strip TEST BLOOD SUGAR ONCE DAILY DIRECTED 100 each Active melatonin 3 MG tablet TAKE TWO TABLETS EVERY NIGHT AT BEDTIME 60 tablet 3 07/31/20 2:51 PM EST Active dapagliflozin (Farxiga) 10 MG TAKE ONE TABLET EVERY DAY AT NOON 30 tablet 3 07/31/20 2:51 PM EST Active atorvastatin (Lipitor) 20 MG tablet TAKE ONE TABLET DAILY AT NOON 30 tablet 3 Active traZODone (Desyrel) 100 MG tablet TAKE ONE TABLET EVERY NIGHT AT BEDTIME 30 tablet 3 11/25/20 25 2:51 PM EST Active amantadine (Symmetrel) 100 MG capsule Take 1 capsule (100 mg) by mouth Once per day. 30 capsule 11 2025 Active finasteride (Proscar) 5 MG tablet Active tamsulosin (Flomax) 0.4 MG 24 hr capsule Active lisinopril 40 MG tablet TAKE ONE TABLET EVERY NIGHT AT BEDTIME 90 tablet 3 Active metFORMIN XR (Glucophage-XR ) 500 MG 24 hr tabletIndicati ons:Type 2 diabetes mellitus without complication, without long-term current use of insulin (HCC) Take 1 tablet by mouth twice daily with meals 60 tablet 2 Active gabapentin (Neurontin) 100 MG capsule Take 100 mg by mouth 3 times daily. Active polyethylene glycol, PEG, 3350 (Glycolax) 17 GM/SCOOP powder STIR 17GM INTO 8 OUNCES OF WATER, OR JUICE, AND DRINK DAILY NEEDED / DIRECTED Active FT Earwax Removal 6.5 % otic solution PLACE 5 to 10 drops IN AFFECTED EAR(S) TWICE DAILY FOR FOUR DAYS Active lisinopril 40 MG tablet TAKE ONE TABLET EVERY MORNING 90 tablet 3 024 2024 Discontinued metFORMIN XR (Glucophage-XR ) 500 MG 24 hr tablet Take 1 tablet by mouth daily with the largest meal of the day 30 tablet 2 025 2024 Discontinued(R eorder (will not trigger notification to Pharmacy)) Active Problems Problem Noted Date Diagnosed Date Other hyperlipidemia 08/01/2025 Pulmonary embolism 08/01/2025 Benign prostatic hyperplasia with lower urinary tract symptoms 08/01/2025 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 He is currently on lisinopril 10mg and metoprolol 50mg daily, told to take additional 10mg today for a total of 20mg, if later on the afternoon it is elevated he might take an additional 10mg, and start 30mg in the morning. 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) 08/01/2025 08/01/2025 Encounters Date Type Department Care Team Description 08/01/2025 9:15 AM EST Office Visit [facility] PEDS [address] [place] [address] Alyx Valadez MD Type 2 diabetes mellitus without complication, without [...] Impaired mobility and ADLs; Hypothyroidism, unspecified type 08/01/2025 Travel 07/31/2025 Telephone [facility] [address] [place], [place] [phone] Alyx Valadez MD chart prep 07/23/2025 Patient Outreach [facility] MEDICINE [address] [place], [place] [phone] Alyx Valadez MD Pre-visit Planning (SDOH screening negative and tobacco screening negative) 07/21/2025 Refill [facility] [address] [place] [address] Sarah Holt MD 07/04/2025 11:30 AM EDT Telemedicine [facility] [address] [place] [address] Rina Suarez, Rambo Type 2 diabetes mellitus without complication, without long-term current use of insulin (HCC) (Primary Dx) 07/04/2025 Travel 07/03/2025 Refill [facility] [address] [place] [address] Sarah Holt MD 06/28/2025 2:30 PM EDT Clinical Support [facility] [address] [place] [address] Aixa Joel, SUZE Cerumen debris on tympanic membrane of left ear 06/28/2025 Travel 06/25/2025 Telephone [facility] [address] [place], [place] [phone] Sarah Holt MD VNA Referral 06/21/2025 Telephone [facility] [address] [place] [address] Sarah Holt MD Record Request 06/19/2025 9:30 AM EDT Office Visit [facility] [address] [place] [address] Sarah Holt MD Type 2 diabetes mellitus without complication, without long-term current use of insulin (HCC) (Primary Dx); HTN (hypertension), benign; Urinary frequency; Tremors of nervous system; Encounter for immunization; Encounter for vaccination; Unsteady gait 06/19/2025 Travel 06/18/2025 Telephone [facility] [address] [place] [address] Lyssa Be, PharmD Discharge Request 06/13/2025 Patient Outreach [facility] [address] [place] [address] Sarah Holt MD Transition Of Care (Tcm) (HDF- Scheduled ) 06/13/2025 Telephone [facility] [address] [place] [address] Sarah Holt MD Appointment Request 06/13/2025 Telephone [facility] [address] [place], [place] [phone] Sarah Holt MD Hospital Follow-up 06/04/2025 Telephone [facility] [address] [place], [place] [phone] Sarah Holt MD 05/04/2025 Refill [facility] [address] [place], [place] [phone] Sarah Holt MD 05/03/2025 Telephone [facility] MEDICINE [address] [place], [place] [phone] Sarah Holt MD FYI from Last 3 Months Immunizations Immunization Administration Dates Next Due Influenza High-dose Quadriva lent Preservative Free 07/06/2023,06/03/2020 Influenza injectable quadriv alent IIV4 with preservative 06/21/2019,07/19/2018,05/27/2017,2015,05/24/2015 Influenza, High Dose Seasona l, Preservative Free 06/19/2025,06/09/2024 Influenza, IIV3, injectable 07/03/2010 Influenza, Split (incl. tien fied surface antigen) 05/10/2012 Pfizer Covid-19 Vaccine 12+ 06/19/2025, Pneumococcal Conjugate PCV 13 07/19/2018 Pneumococcal Conjugate PCV 20 07/26/2023 Tdap 07/26/2023,07/23/2010 Zoster, Recombinant 09/01/2019,06/30/2019 Zoster, live 04/16/2017 Social History Tobacco Use Types Packs/Day Years Used Date Smoking Tobacco: Former Cigarettes Smokeless Tobacco: Never Tobacco Cessation:Counseling Given: Not Answered Depression Answer Date Recorded Patient Health Questionnaire-9 [...] Orientation Straight 07/06/2022 10 :20 AM EDT Last Filed Vital Signs Vital Sign Reading [...] Mass Index 35.39 08/01/2025 9:01 AM EST Plan of Treatment Upcoming Encounters Date Type Department Care Team (Late st Contact Info) Description 10/01/2025 1:00 PM EST Telemedicine [facility] [address] [place] [address] Rina Suarez, PharmD [address] [place], [place] [phone] Health Maintenance Due Date Last Done Comments CT Colonography 1953 Colonoscopy 1953 Colorectal Cancer Screening 1953 FIT DNA/Cologuard 1953 FIT 1953 FOBT 1953 Sigmoidoscopy 1953 Diabetes: Foot Exam 1963 Eye Exam 1963 Hepatitis C Screening 1971 Diabetes: Urine Protein Screening 1972 RSV Patients and Patients Aged 60 years or older (1 - Risk 50-74 years 1-dose series) 2003 COVID-19 Vaccine ( season) 2025 06/19/2025, 06/09/2024, 07/06/2023, Additional history exists Diabetes: Hemoglobin A1C 01/29/2026 025, 06/19/2025, 05/10/2025, Additional history exists Lipid Panel 02/13/2026 02/13/2025, 09/06, 01/02/2022, Additional history exists SDOH Screening 07/23/2026 07/23/2025 Alcohol/Substance Use Screening 08/01/2026 08/01/2025 Depression Screening 08/01/2026 08/01/2025, 08/01/20 Tobacco Screening 08/01/2026 08/01/2025 DTaP/Tdap/Td Vaccines (3 - Td or Tdap) 07/26/2033 07/26/2023, 07/23/2010 Zoster Vaccines Completed 09/01/2019, 06/07, 04/16/2017 Pneumococcal Vaccine: 50+ Years Completed 07/26/2023, 07/19/2018 Influenza Vaccine Completed 06/19/2025, , 07/06/2023, Additional history exists HIB Vaccines Aged Out No longer eligi [...] patient's age to complete this topic Meningococcal Vaccine Aged Out No sunshine jillian eligible based on patient's age to complete this topic RSV under 20 months Aged Out No longe r eligible based on patient's age to complete this topic Rotavirus Vaccines Aged Out No longer eligible based on patient's age to complete this topic Goals Goal Patient Goal Type Associated Problems [...] chronic kidney disease No Devon Fernandez MA Procedures Procedure Name Priority Date/Time Associated Diagnosis Comments POCT GLUCOSE Routine 08/01/2025 9:12 AM EST Type 2 diabetes mellitus without complication, without long-term current use of insulin (HCC) POCT GLYCATED HEMOGLOBIN, TOTAL Routine 08/01/2025 9:11 AM EST Type 2 diabetes mellitus without complication, without long-term current use of insulin (HCC) POCT GLYCATED HEMOGLOBIN, TOTAL Routine 06/19/2025 9:41 AM EDT Type 2 diabetes mellitus without complication, without long-term current use of insulin (HCC) POCT GLUCOSE Routine 06/19/2025 9:40 AM EDT Type 2 diabetes mellitus without complication, without long-term current use of insulin ([facility]) LIPID PANEL, STANDARD Routine 02/13/2025 Type 2 diabetes mellitus with other circulatory complication, without long-term current use of insulin ([facility]/HCC) from Last 3 Months or Most Recently Relevant to Health Maintenance Results * POCT Glucose (08/01/2025 9:12 AM EST) Only the most recent of2 resultswithin the time period is included. Glucose Blood, POC 186 60 - 200 mg/dL QC Media Lot # [id number] Lot# Expiration Date [id number] Blood Capillary blood specimen / Unknown 08/01/2025 9:12 AM EST Alyx Valadez MD POINT OF CARE TEST ENTER/EDIT ORDERABLES Final Result * (ABNORMAL) POCT Hgb A1c (08/01/2025 9:11 AM EST) Only the most recent of2 resultswithin the time period is included. Hemoglobin A1C 6.3(A) 4.0 - 5.7 % QC Media Lot # [id number] Lot# Expiration Date [id number] Blood 08/01/2025 9:11 AM EST Alyx Valadez MD POINT OF CARE TEST ENTER/EDIT ORDERABLES Final Result * Lipid Panel, Standard (02/13/2025) Blood Venous blood specimen / Unknown Sarah Holt MD LAB BLOOD ORDERABLES Final Resul t [facility] [address] [place] [phone] from Last 3 Months or Most Recently Relevant to Health Maintenance Additional Health Concerns Active Problems Noted Date [...] 08/01/2025 Patient has chronic kidney disease 08/01/2025 Insurance [facility] OPTIONS (O D-SNP) [place] [id number] Advance Directives Documents on File Type Date Recorded Patient Director Of Anesthesia Services Expl anation Advance Directives and Livin g Will 06/26/2025 8:19 AM HCP Care Teams Track Service Worker Relationship Specialty Start Date End Date Alyx Valadez MD [address] [place] [address] PCP - General Family Medicine 07/20/25 Rina Suarez, ShirinD [address] [place] [address] Pharmacist Internal Medicine 10/27/24 [facility] 06/18/24 Pawan Valles MD [address] [place] [address] Psychiatrist 08/01/25 [facility] 08/01/25 Megan Lr 08/01/25
[2025-08-01 15:55] LABS: Alanine Aminotransferase 26 U/L (0-40); Albumin Level 4.4 g/dL (3.5-5.0); Alkaline Phosphatase 69 U/L (39-117); Anion Gap 12 (12-20); Aspartate Amino Transferase 31 U/L (5-37); Blood Urea Nitrogen 26 mg/dL (9-16); Calcium 9.8 mg/dL (8.4-10.2); Carbon Dioxide 26 mmol/L (22-29); Chloride 106 mmol/L (96-108); Cholesterol 166 mg/dL (<200); Estimated Glomerular Filt Rate > 60; HDL Cholesterol 41 mg/dL (>40); Potassium 3.7 mmol/L (3.3-5.1); Sodium 140 mmol/L (135-145); Total Protein 6.9 g/dL (6.5-8.0); Triglycerides 344 mg/dL (<150)
[2025-08-02 05:10] LABS: ~HepC Num1 0.43 S/CO (0.00-0.79); ~Hepatitis C Antibody Nonreactive (Nonreactive)
== END 2025-08-01 09:53 | disposition home or self-care (01) ==
LOC: HO.CHCLDS 09:52
PROVIDERS: Visit Provider Family Medicine
DX: E11.9 Type 2 diabetes mellitus without complications (principal); E03.9 Hypothyroidism, unspecified; Z11.59 Encounter for screening for other viral diseases
CPT/HCPCS: 36415; 80053; 80061; 84443; 86803